=== PATIENT | female | born 1970 | race Caucasian/White ===

== ENCOUNTER → 2016-07-09 | Outpatient (CLI) | payer OTHER ==
[~2016-07-09] MED LIST: AMPH10CA3 PO; EFFSR150 PO; LURA1TAB PO; METH-589 PO; ONDA4TAB10 SL; OXYC-57 PO
--- NOTE | 2016-07-09 12:02 | DIAGNOSTIC IMAGING REPORT ---
LEFT KNEE 2 VIEWS HISTORY: M25.562 Left knee pain, unspecified chronicity COMPARISON: None. FINDINGS: There is no fracture or dislocation. Soft tissues are unremarkable. No radiopaque foreign bodies. No knee effusion. Cartilage spaces are maintained for age. IMPRESSION: Unremarkable left knee. Electronically signed by: Yaw Calhoun M.D. 07/09/2016 12:00 PM Dictated Date/Time: 07/09/2016 11:59 AM
[2016-07-09 13:52] LABS: THYROID STIMULATING HORMONE 1.46 uIu/ml (0.300-4.500)
== END | disposition home or self-care (01) ==
LOC: C.LAB1850 11:25
PROVIDERS: ATTEND Internal Medicine Endocrinology, Diabetes & Metabolism
DX: M25.562 Pain in left knee (principal)

== ENCOUNTER → 2017-03-24 | Outpatient (CLI) | payer OTHER ==
[~2017-03-24] MED LIST changes: -ONDA4TAB10 SL; -OXYC-57 PO
== END | disposition home or self-care (01) ==
LOC: C.PAPS 09:29
PROVIDERS: ATTEND Obstetrics & Gynecology
DX: Z12.4 Encounter for screening for malignant neoplasm of cervix (principal)

== ENCOUNTER → 2017-07-13 | Outpatient (CLI) | payer OTHER ==
[2017-07-13 12:32] LABS: BASO % 0.1 %; BASO ABS # 0.01 K/uL (0-0.2); EOS % 0.6 %; EOS ABS # 0.06 K/uL (0-0.5); HEMATOCRIT 43.8 % (37-47); HEMOGLOBIN 14.3 g/dL (12.0-16.0); IG# 0.03 K/uL (0.00-0.02); LYMPH % 25.7 %; LYMPH ABS # 2.61 K/uL (1.2-3.4); MEAN CELL VOLUME 94.6 fL (80-100); MEAN CORPUSCULAR HEMOGLOBIN 30.9 pg (25-34); MEAN CORPUSCULAR HGB CONC 32.6 g/dl (32-36); MEAN PLATELET VOLUME 9.2 fL (7.4-10.4); MONO % 7.5 %; MONO ABS # 0.76 K/uL (0.11-0.59); NEUT % 65.8 %; NEUT ABS # 6.67 K/uL (1.4-6.5); PLATELET COUNT 294 K/uL (130-400); RED CELL DISTRIBUTION WIDTH CV 13.9 % (11.5-14.5); RED CELL DISTRIBUTION WIDTH SD 47.7 fL (36.4-46.3); WHITE BLOOD COUNT 10.14 K/uL (4.8-10.8)
[2017-07-13 13:07] LABS: ALBUMIN 3.8 gm/dl (3.4-5.0); ALT/SGPT 25 U/L (12-78); AST/SGOT 13 U/L (15-37); BLOOD UREA NITROGEN 8 mg/dl (7-18); CALCIUM 9.1 mg/dl (8.5-10.1); CARBON DIOXIDE 27 mmol/L (21-32); CHOLESTEROL 241 mg/dl (0-200); CREATININE 0.67 mg/dl (0.60-1.20); GLUCOSE 95 mg/dl (70-99); LDL CHOLESTEROL CALCULATED 146 mg/dl; POTASSIUM 4.4 mmol/L (3.5-5.1); SODIUM 139 mmol/L (136-145)
[2017-07-13 13:11] LABS: ALKALINE PHOSPHATASE 60 U/L (45-117)
== END | disposition home or self-care (01) ==
LOC: C.LABBFT 10:47
PROVIDERS: ATTEND Internal Medicine
DX: R53.83 Other fatigue (principal); E78.5 Hyperlipidemia, unspecified; E05.90 Thyrotoxicosis, unspecified without thyrotoxic crisis or storm

== ENCOUNTER → 2017-08-12 | Outpatient (CLI) | payer OTHER ==
[~2017-08-12] MED LIST changes: +OPTIRAY 320 IV PRN
--- NOTE | 2017-08-12 09:37 | DIAGNOSTIC IMAGING REPORT ---
(CHEST FOR PE) ANGIO WITH CT DOSE: 178.20 mGy.cm HISTORY: 47 years-old Female presents with acute dyspnea on exertion and dizziness TECHNIQUE: Multiple CTA images of the chest were obtained after the intravenous administration of 77 ml Optiray 320. Coronal and sagittal MIPS were obtained from the axial data set and were submitted for review. A dose lowering technique was utilized adhering to the principles of ALARA. COMPARISON: Chest radiographs 11/01/2015 FINDINGS: CTA: The heart is normal in size without pericardial effusion. The thoracic aorta is normal in both course and caliber without aneurysm or dissection. Mild atheromatous plaquing involves the origin of the left subclavian artery without high-grade narrowing. Mild atheromatous plaquing involves the descending thoracic aorta. The pulmonary arterial tree is opacified to level of the subsegmental branches and demonstrates no focal filling defects to suggest pulmonary thromboembolic disease. CT CHEST: No dominant thyroid nodule identified. No pathologic adenopathy is identified. There is no pneumothorax, pleural effusion or focal airspace consolidation. Minimal dependent subsegmental bibasilar atelectasis with mild biapical pleural-parenchymal scarring. No suspicious pulmonary nodules or masses are identified. There is mild bilateral bronchial wall thickening of the lung bases with minimal mucosal secretions noted within bronchi of the right lower lobe. Imaged upper abdominal structures are unremarkable. The breast parenchyma appears to be within normal limits. Soft tissues are unremarkable. Bones appear intact. IMPRESSION: 1. No acute aortic pathology or evidence of pulmonary thromboembolic disease. 2. Minimal bilateral bronchial wall thickening with areas of minimal mucosal secretions within the tracheobronchial tree suggest mild bronchitis. No focal airspace consolidation to suggest pneumonia. 3. No pathologic adenopathy. The above report was generated using voice recognition software. It may contain grammatical, syntax or spelling errors. Electronically signed by: Jean Marie Trevino M.D. 08/12/2017 9:36 AM Dictated Date/Time: 08/12/2017 9:29 AM
== END | disposition home or self-care (01) ==
LOC: C.CTS 09:10
PROVIDERS: ATTEND Physician Assistant Medical
DX: R06.09 Other forms of dyspnea (principal)

== ENCOUNTER 2018-08-17 05:43 | Observation (INO) ==
--- NOTE | 2018-08-12 09:32 | Anesthesiology Consultation ---
Date of Service August 12, 2018 Assessment & Plan (1) Encounter for pre-operative examination: Chart Review Chart Review: Acceptable Risk for Surgery and Patient NOT seen in Pre Admission Testing History Surgery Operation Date: 08/17/18 07:30 Proposed Procedures p Robot-Assisted Laparoscopic Fundoplication with - Franky Lr MD, FACS s Intra-Operative Esophagogastroduodenoscopy - Franky Lr MD, FACS Height/Weight Height: 5 ft 1 in Weight: 61.235 kg Allergies Allergy/AdvReac Type Severity Reaction Status Date / Time Penicillins Allergy Unknown THROAT Verified 08/11/18 10:05 SWELLING Tetracyclines Allergy Unknown SWALLOWING Verified 08/11/18 10:05 DIFFICULTY bupropion [From Wellbutrin] AdvReac Severe SEVERE Verified 08/11/18 10:21 REFLUX, SEVERE ABDOMINAL PAIN WITH EROSIONS lurasidone [From Latuda] AdvReac Severe TACHYCARDIA, Verified 08/11/18 10:20 LIGHTHEADED Medications Home Medications Medication Instructions Recorded Confirmed Last Taken venlafaxine 225 mg PO QAM #0 02/19/15 08/11/18 04/05/18 atomoxetine [Strattera] 100 mg PO QAM 04/01/18 08/11/18 04/05/18 lamotrigine [Lamictal] 200 mg PO HS 04/01/18 08/11/18 04/05/18 methimazole 5 mg PO QAM 08/11/18 08/11/18 Unknown trazodone 200 mg PO HS 08/11/18 08/11/18 Unknown Past Medical History Medical History ADHD Anxiety Asthma NO INHALER Depression GERD (gastroesophageal reflux disease) Hyperthyroidism ON METHIMAZOLE; EUTHYROID ON 06/2018 LABS Kidney stones Past Family History Family History Mother FHx: breast cancer Past Surgical History Surgical History History of arthroscopy RIGHT KNEE History of bilateral tubal ligation History of esophagogastroduodenoscopy (EGD) History of tonsillectomy Nausea and vomiting after administration of anesthetic agent Social History Smoking Status: Current every day smoker tobacco type: cigarettes Smoking cigarettes per day: 1/2-3/4 PPD X30 YEARS Do You Dip or Chew Tobacco: No Hx Alcohol Use: No Hx Substance Use: Yes substance use type: marijuana Last Used Substance Other:: 08/04/18 Testing Laboratory Results 08/11/18 WBC 10.13 H/H 13.2/40.9 PLATELETS 294 SODIUM 138 POTASSIUM 4.1 CHLORIDE 109 CO2 26 BUN 12 CREATININE 0.74 GLUCOSE 90 07/13/18 TSH 1.540 FREE T4 0.92
[2018-08-17] MEDS ORDERED: LR 15ML/HR IV SCH (06:00)
[2018-08-17] MEDS ORDERED: MIDAZOLAM HCL 1 MG/ML 2ML VIAL ONE (06:37)
[2018-08-17] MEDS ORDERED: fentaNYL citrate 100 MCG/2 ML VIAL ONE ×2 (06:37→08:26)
[2018-08-17] MEDS ORDERED: ACETAMINOPHEN 1000 MG/100 ML IV IV ONE (06:51)
[2018-08-17] MEDS ORDERED: PROPOFOL IV EMULSION 10 MG/ML 20 ML VIAL IV ONE (06:54)
[2018-08-17] MEDS ORDERED: LIDOCAINE HCL 2% 2 ML VIAL/AMP(20MG/ML) INFIL ONE (06:54)
[2018-08-17] MEDS ORDERED: ROCURONIUM BROMIDE 10 MG/ML 5 ML VIAL ONE ×5 (06:54)
[2018-08-17] MEDS ORDERED: BUPIVACAINE 0.5 % 5 MG/1 ML MPF 30ML VIAL ONE (07:09)
[2018-08-17] MEDS ORDERED: SODIUM CHLORIDE 0.9% PF 50 ML VIAL ONE (07:09)
[2018-08-17] MEDS ORDERED: BUPIVACAINE LIPOSOME 1.3% 266 MG/20 ML VIAL ONE (07:10)
[2018-08-17] MEDS ORDERED: SCOPOLAMINE 1.5 MG TDSY ONE (07:15)
[2018-08-17] MEDS ORDERED: CLINDAMYCIN 600 MG/54 ML D5W IV ONE (07:18)
--- NOTE | 2018-08-17 07:18 | History & Physical Bridge Note ---
Date of Service August 17, 2018 History & Physical Bridge Note I have examined the patient, reviewed the History & Physical and in the interval since the performance of the History & Physical I have noted the following changes of clinical significance:We will perform an upper endoscopy to evaluate the repair as I do in every one of these cases. No changes noted
[2018-08-17] MEDS ORDERED: CLINDAMYCIN PHOS 300 MG/2 ML VIAL ONE (07:21)
[2018-08-17] MEDS ORDERED: PHENYLEPHRINE 100MCG/ML 5ML SYR IV PRN (07:33)
[2018-08-17] MEDS ORDERED: ATROPINE SULFATE 0.1 MG/ML 10ML SYR IV PRN (07:33)
[2018-08-17] MEDS ORDERED: ePHEDrine sulfate 50 MG/ML AMP IV PRN (07:33)
[2018-08-17] MEDS ORDERED: HYDROmorphone INJ 1 MG/ML SYRINGE IV PRN (07:33)
[2018-08-17] MEDS ORDERED: fentaNYL citrate 100 MCG/2 ML VIAL IV PRN (07:33)
[2018-08-17] MEDS ORDERED: ONDANSETRON INJ 2 MG/ML 2 ML VIAL IV PRN (07:33)
[2018-08-17] MEDS ORDERED: LABETALOL HCL IV 5 MG/ML 20ML IV PRN (07:33)
[2018-08-17] MEDS ORDERED: MEPERIDINE HCL 25 MG/ML CARP IV PRN (07:33)
[2018-08-17] MEDS ORDERED: SCOPOLAMINE 1.5 MG TDSY TD ONE (07:35)
[2018-08-17] MEDS ORDERED: CLINDAMYCIN 600 MG in DEXTROSE 5% 50 ML IV SCH (08:30)
[2018-08-17] MEDS ORDERED: HYDROmorphone INJ 2 MG/ML SYR/VIAL ONE (08:44)
[2018-08-17] MEDS ORDERED: GLYCOPYRROLATE 0.2 MG/ML VIAL ONE (09:55)
[2018-08-17] MEDS ORDERED: NEOSTIGMINE METHYLSULFATE 5 MG/5 ML SYR ONE (09:55)
--- NOTE | 2018-08-17 09:55 | Post Operative Brief Note ---
Immediate Post Op Note v1 Date of Surgery August 17, 2018 Pre & Post Diagnosis Operation Date: 08/17/18 07:30 Pre-Op Diagnosis: GERD Post-Op Diagnosis: GERD Procedure Operation Date: 08/17/18 07:30 Actual Procedures p Robot-Assisted Laparoscopic Chantal Fundoplication - Franky Lr MD, FACS Surgeon Franky Lr MD, FACS Tree Driller Eneida [place] Estimated Blood Loss 8 Findings Consistent with Post-Op Diagnosis Drains Rice Catheter
[2018-08-17] MEDS ORDERED: METOCLOPRAMIDE HCL INJ 5 MG/ML 2 ML VIAL IV ONE (10:30)
--- NOTE | 2018-08-17 10:32 | XRay Report ---
XR chest 1V portable HISTORY: 48 years-old Female s/p linwood fundoplication COMPARISON: Chest and rib radiographs 07/13/2018 TECHNIQUE: Portable AP view of the chest FINDINGS: Cardiomediastinal and hilar silhouettes are within normal limits. No pneumothorax or large pleural ef fusion. Subsegmental left basilar opacities are noted with suspected trace left pleural effusion. Sub cutaneous emphysema about the lower chest bilaterally. Degenerative changes of the shoulders and spin e. IMPRESSION: 1. No pneumothorax. 2. Left basilar opacities are suggestive of atelectasis with trace left pleural effusion. 3. Subcutaneous emphysema about the lower chest wall bilaterally likely postsurgical. The above report was generated using voice recognition software. It may contain grammatical, syntax o r spelling errors. Electronically signed by: Jean Marie Trevino M.D. 08/17/2018 10:31 AM
--- NOTE | 2018-08-17 11:13 | Anesthesiology Progress Note ---
Date of Service August 17, 2018 Anesthesia Post Procedure Vital Signs Vital Signs: Temp Pulse Pulse Pulse Resp BP BP 08/17/18 11:00 102 H 12 126/75 08/17/18 10:55 105 H 28 H 118/69 08/17/18 10:50 112 H 19 125/79 08/17/18 10:45 102 H 20 120/74 08/17/18 10:40 108 H 24 126/77 08/17/18 10:35 107 H 15 136/75 08/17/18 10:31 102 H 17 125/73 08/17/18 10:30 108 H 14 08/17/18 10:25 108 H 18 133/81 08/17/18 10:21 36.3 C L 103 H 107 H 28 H 133/97 133/97 08/17/18 06:07 36.8 C 112 H 18 130/72 Pulse Ox 08/17/18 11:00 100 08/17/18 10:55 100 08/17/18 10:50 100 08/17/18 10:45 100 08/17/18 10:40 100 08/17/18 10:35 100 08/17/18 10:31 100 08/17/18 10:30 100 08/17/18 10:25 94 08/17/18 10:21 94 08/17/18 06:07 97 Pain Intensity Abdomen: Pain Intensity: 4 Notes Mental Status: alert / awake / arousable Patient Amnestic to Procedure: Yes Nausea / Vomiting: adequately controlled Pain: adequately controlled Airway Patency, RR, SpO2: stable & adequate BP & HR: stable & adequate Hydration State: stable & adequate Anesthetic Complications: no major complications apparent and Pt Satisfied with anesthetic care Notes: The patient is awake and stable.
[2018-08-17] MEDS: CHECK SCOPOLAMINE PATCH PLACEMENT SCH ×3 (11:53→23:25)
[2018-08-17] MEDS: MoRPHine SULFATE 4 MG/ML 1 ML CARP\\VIAL IV PRN ×3 (12:13→19:45)
[2018-08-17] MEDS ORDERED: METOCLOPRAMIDE HCL INJ 5 MG/ML 2 ML VIAL ONE (12:49)
[2018-08-17] MEDS: ONDANSETRON INJ 2 MG/ML 2 ML VIAL IV SCH ×3 (12:55→20:38)
[2018-08-17] MEDS: D5W AND 1/2NSS 1,000 ML IV SCH ×2 (12:55→22:55)
[2018-08-17 13:30] LABS: Partial Thromboplastin Ratio 0.9; Partial Thromboplastin Time 23.9 Seconds (21.0-31.0); Prothrombin Time 10.2 Seconds (9.0-12.0)
[2018-08-17] MEDS: ACETAMINOPHEN 1,000 MG/100 ML VIAL IV SCH ×2 (14:41→22:46)
[2018-08-17] MEDS: METOCLOPRAMIDE HCL INJ 5 MG/ML 2 ML VIAL IV SCH (20:29)
[2018-08-17] MEDS: DOCUSATE SODIUM 100 MG CAP PO SCH (20:39)
[2018-08-17] MEDS ORDERED: TRAZODONE HCL 100 MG TAB PO SCH (21:00)
[2018-08-17] MEDS ORDERED: lamoTRIgine 100 MG TAB PO SCH (21:00)
--- NOTE | 2018-08-17 21:41 | Operative Report ---
DATE OF OPERATION: 08/17/2018 PREOPERATIVE DIAGNOSIS: Gastroesophageal reflux, unresponsive to medical management. POSTOPERATIVE DIAGNOSIS: Gastroesophageal reflux, unresponsive to medical management. PROCEDURE: Robotic-assisted laparoscopic Chantal fundoplication. SURGEON: Franky Lr MD TERRITORY SERVICE REPRESENTATIVE: AMAN Ivey ANESTHESIA: General anesthesia, endotracheal intubation. INDICATIONS FOR PROCEDURE AND FINDINGS: This patient is a 48-year-old female who has been bothered with intractable gastroesophageal reflux. She does not have much in the way of a hiatal hernia, but has had severe reflux and awakens at times with a mouth full of bile from sleeping. We had a long talk in the office and she is quite eager to have this repaired. On 08/17/2018, the patient underwent an uncomplicated robot-assisted laparoscopic Chantal fundoplication. She really did not have much of a hernial defect although I did place 1 silk suture posteriorly. She had for a floppy Chantal, which was done without difficulty. She tolerated it quite well. She was extubated in the room. I did attempt to do an upper endoscopy; however, she had a small mouth and I had difficulty with the scope in and so I just stopped rather than be aggressive with it. I did explain to the patient and her family beforehand that I do like to do an endoscopy at the table, but it is not a critical part of the case. DESCRIPTION OF PROCEDURE: On 08/17/2018, the patient was brought to Operating Room and laid in supine position. General anesthesia induced. Endotracheal intubation was performed. Appropriate antibiotics were given and appropriate timeout had been called, an incision was made above between the umbilicus and the xiphoid. Then, 5 mm trocar was placed with the scope in place to see when we got into the abdominal cavity. Carbon dioxide was insufflated. We could see there were no adhesions. Two 8 mm ports placed just a bit lateral to the midclavicular line as she is a small woman. Two 5 mm ports were placed laterally and inferiorly. We then placed an pharmaceutical assistant's port in the left paramedian area near the umbilicus. After the patient was placed in a reverse Trendelenburg and the robot had been docked, we placed a liver retractor and held with the left lobe of the liver and we could see the hiatus nicely. There did not appear to be hiatal hernia in this area. I started by taking down the short gastrics and took them down so that the spleen would fell away from the body. I then came up posteriorly and identified the pancreas. We freed up the crura both on the right side and posteriorly and I then the pars flaccida and then dissected out the right yonatan diaphragm. We easily made this space. There really was not much of a hernia, but I did put a single 0 silk to keep the crura together posteriorly. I then dissected out with care taken to avoid injury to the vagus nerves. The posterior fundus was then brought around in the retroesophageal area. I did a shoeshine procedure by pulling on the anterior and posterior fundus behind the esophagus, making sure we had no redundant stomach. I then sutured the anterior wall of the fundus to the esophagus to the posterior wall of the fundus and tied this together. This came together nicely under no tension. I placed 2 more sutures and did a floppy Chantal, which was not under tension whatsoever. We then undocked the robot. We placed the patient back in supine position and I placed a bite block and went to place an endoscope; however, I had difficulties to get her mouth open despite being under anesthesia. There were also some issues with opening her mouth and when she was being intubated. At any rate, I tried this for a minute or so, but I did not want to push this, so I aborted the attempt to do an upper endoscopy. We then closed the 2 larger incisions with a camera port and the pharmaceutical assistant's port with a #1 Maxon. A 4-0 Monocryl was then used in running subcuticular fashion to close the wound edges of all of the wounds. We decompressed CO2. The fundoplication laid very nicely. We had really gotten no bleeding. She tolerated it well, was extubated in the room without difficulty. She was transported back to the Postanesthesia Care Unit in a stable condition. I attest to the content of the Intraoperative Record and any orders documented therein. Any exception s are noted below.
[2018-08-18] MEDS: ONDANSETRON INJ 2 MG/ML 2 ML VIAL IV SCH ×3 (02:00→09:55)
[2018-08-18] MEDS: MoRPHine SULFATE 4 MG/ML 1 ML CARP\\VIAL IV PRN (05:12)
[2018-08-18] MEDS: METOCLOPRAMIDE HCL INJ 5 MG/ML 2 ML VIAL IV SCH (05:12)
[2018-08-18] MEDS: ACETAMINOPHEN 1,000 MG/100 ML VIAL IV SCH (06:05)
--- NOTE | 2018-08-18 08:10 | Anesthesiology Progress Note ---
Date of Service August 18, 2018 Anesthesia Post Procedure Vital Signs Vital Signs: Temp Pulse Pulse Pulse Pulse Resp BP 08/18/18 07:38 36.9 C 100 H 12 08/18/18 03:11 36.8 C 106 H 14 08/17/18 23:38 98 H 08/17/18 23:27 36.7 C 103 H 14 08/17/18 15:10 08/17/18 14:38 36.6 C 98 H 16 08/17/18 13:38 36.5 C 104 H 16 08/17/18 12:44 36.4 C L 107 H 16 08/17/18 12:09 36.7 C 111 H 15 08/17/18 11:40 36.8 C 110 H 16 08/17/18 11:30 107 H 21 115/71 08/17/18 11:25 107 H 21 121/71 08/17/18 11:20 108 H 17 109/72 08/17/18 11:19 37.1 C 08/17/18 11:15 110 H 17 108/75 08/17/18 11:10 109 H 17 113/67 08/17/18 11:05 107 H 17 120/75 08/17/18 11:00 102 H 12 126/75 08/17/18 10:55 105 H 28 H 118/69 08/17/18 10:50 112 H 19 125/79 08/17/18 10:45 102 H 20 120/74 08/17/18 10:40 108 H 24 126/77 08/17/18 10:35 107 H 15 136/75 08/17/18 10:31 102 H 17 125/73 08/17/18 10:30 108 H 14 08/17/18 10:25 108 H 18 133/81 08/17/18 10:21 36.3 C L 103 H 107 H 28 H 133/97 BP BP Pulse Ox 08/18/18 07:38 84/47 L 92 08/18/18 03:11 99/56 L 95 08/17/18 23:38 108/68 08/17/18 23:27 84/42 L 92 08/17/18 15:10 97 08/17/18 14:38 106/65 99 08/17/18 13:38 108/64 96 08/17/18 12:44 98/60 L 100 08/17/18 12:09 111/65 100 08/17/18 11:40 109/66 95 08/17/18 11:30 100 08/17/18 11:25 100 08/17/18 11:20 100 08/17/18 11:19 100 08/17/18 11:15 100 08/17/18 11:10 100 08/17/18 11:05 99 08/17/18 11:00 100 08/17/18 10:55 100 08/17/18 10:50 100 08/17/18 10:45 100 08/17/18 10:40 100 08/17/18 10:35 100 08/17/18 10:31 100 08/17/18 10:30 100 08/17/18 10:25 94 08/17/18 10:21 133/97 94 Pain Intensity Abdomen: Pain Intensity: 8 Notes Mental Status: alert / awake / arousable and participated in evaluation Patient Amnestic to Procedure: Yes Nausea / Vomiting: adequately controlled Pain: adequately controlled Airway Patency, RR, SpO2: stable & adequate BP & HR: stable & adequate Hydration State: stable & adequate Anesthetic Complications: no major complications apparent and Pt Satisfied with anesthetic care
--- NOTE | 2018-08-18 08:36 | Fluoroscopy Report ---
FL barium swallow CLINICAL HISTORY: 48 years-old Female presenting with Chantal . TECHNIQUE: A routine air-contrast (double contrast) barium esophagram was performed. Multiple spot im ages of the esophagus and stomach were acquired both upright and prone. COMPARISON: 08/02/2018. FINDINGS: The patient was able to ingest barium without difficulty. No barium pill was administered. Normal eso phageal mucosal pattern. No evidence of intrinsic or extrinsic mass lesion. No aspiration observed. N ormal esophageal motility with no significant delay in clearance of the esophagus. No evidence of derick k at the gastroesophageal junction. The gastroesophageal junction distended normally. No evidence of a hiatal hernia. Postsurgical changes of Chantal procedure. The stomach is normal appearing with sligh t delay in clearance, possibly postsurgical ileus. Fluoroscopy dosage (mGy): Not available. Fluoroscopy time: 1.4 minutes. Number or time of fluoroscopic spot images: 8. IMPRESSION: 1. Expected postsurgical appearance status post Chantal procedure. No hold up at the gastroesophageal junction. 2. Slight delay in gastric clearance may represent a postsurgical ileus. Electronically signed by: Herbert Barrios M.D. 08/18/2018 8:34 AM
[2018-08-18] MEDS ORDERED: VENLAFAXINE HCL XR 75 MG CAPXR PO SCH (09:00)
[2018-08-18] MEDS ORDERED: ATOMOXETINE HCL 25 MG CAPSULE PO SCH (09:00)
[2018-08-18] MEDS ORDERED: methIMAzole 5 MG TABLET PO SCH (09:00)
[2018-08-18] MEDS ORDERED: ENOXAPARIN INJ 40 MG/0.4 ML SYR SQ SCH (09:00)
--- NOTE | 2018-08-18 09:11 | Discharge Summary ---
DISCHARGE DIAGNOSES: Gastroesophageal reflux with unresponsive medical management. HOSPITAL COURSE: The patient is a very nice 48-year-old female who had been plagued with gastroesophageal reflux for a long period of time. She is not really responding to medications. She has severe reflux, which is interesting that she awakens at night with a mouth full of bile on a regular basis. She also coughs quite a bit with this. She had no other signs or symptoms radiographically or clinically of aspiration. On 08/17/2018, took the patient to the Operating Room and did an uncomplicated robot assisted Chantal fundoplication. She did very well with this. She really did not have much in the way of a hiatal hernia and so I did not do a patch, although I did place 1 suture in the posterior crura to bring the right and left crura together. A barium swallow done the morning after surgery showed good flow through the esophagus with no hold up and no evidence of perforation. Also passed into the duodenum quite nicely. The patient tolerated it quite well. She was tolerating liquids. She was discharged home on postop day 1. We will see her back in the office in about 2 weeks. Discharge instructions were given particularly about her wounds and her diet.
[2018-08-18] MEDS: CHECK SCOPOLAMINE PATCH PLACEMENT SCH (09:54)
[2018-08-18] MEDS: D5W AND 1/2NSS 1,000 ML IV SCH (09:54)
[2018-08-18] MEDS: DOCUSATE SODIUM 100 MG CAP PO SCH (09:55)
== END 2018-08-18 10:45 | disposition home or self-care (01) ==
LOC: 3W 05:43 → ASU 05:43

== ENCOUNTER 2020-02-08 08:13 | Inpatient (IN) ==
[2020-02-08] MEDS ORDERED: VANCOMYCIN CONSULT ACTIVE PRN (09:21)
[2020-02-08] MEDS ORDERED: ONDANSETRON INJ 2 MG/ML 2 ML VIAL IV PRN (09:26)
[2020-02-08] MEDS ORDERED: ACETAMINOPHEN 325 MG TAB PO PRN (09:26)
--- NOTE | 2020-02-08 09:31 | History & Physical Report ---
Date of Service February 08, 2020 Assessment & Plan (1) Facial cellulitis: - Admit to med surg for failure of outpatient antibiotics. - CT of the neck involves edema, consider sialadenitis with a possible stone in place? - Consider ENT consult Mild submetal soft tissue stranding with increased number nonenlarged probable reactive nodules, consistent with cellulitis/adenitis. No focal abscess. - NSS while NPO - Continue rocephin, vanc IV for now - Cont decadron IV x 24 hrs and then can likely dc - NPO for now, advance diet as tolerated once swelling improves, possibly later tonight - Pain control with toradol, tylenol - antiemetics with zofran (2) Carotid artery stenosis: - Hx of such, not on lipid modifying medications (3) Dyslipidemia: - Hx of such, lipids to be followed with fasting labs or as outpt (4) Hyperthyroidism: - Cont methimazole 5 mg daily (5) ADHD: - Continue adderal xr and vraylar - follows with Mrs. Bunn [facility], psychiatry as outpatient (6) Anxiety: (7) Depression: - Cont effexor, trazodone (8) DVT prophylaxis: teds, ambulatory CODE: FULL Dispo: From home, likely to remain in the hospital x 1-2 days History of Present Illness Primary Care Provider: Anurag Nagy MD This is a 49 yo F with PMHx of carotid artery stenosis, HLD, asthma, depression, ADHD, anxiety, GERD, nephrolithiasis, hyperthyroidism who presents from [facility] with facial cellulitis which failed outpatient antibiotics. She initially noticed worsening swelling and pain which began ear lier this week. She went to urgent care clinic on Tuesday 02/06 due to the significant pain in her right side of the mouth and sublingually, as well as increased swelling. They gave her an antibiotic and was able to take 4 doses of this prior to presenting to [place] [facility]. Once there was given vancomycin, rocephin and decadron 4 mg IV where her symptoms improved. WBC elevated at 18.43. She denies any recent dental issues, no broken teeth or trauma to the mouth. She denies having this before. Her pain and swelling have improved at this time compared to this morning. She reports having sweats and chills, but no documented fever. She was taking tylenol and ibuprofen at home for the pain, and reports vomiting x 1 last night but thinks this was due to an empty stomach. Pt has been unable to tolerate oral intake for 3 days but has been able to take sips of liquids and could swallow her medications as prescribed. She denies any other acute complaints. Allergies Allergy/AdvReac Type Severity Reaction Status Date / Time lurasidone [From Latuda] Allergy Severe TACHYCARDIA, Verified 12/14/19 13:33 LIGHTHEADED Penicillins Allergy Severe THROAT Verified 12/14/19 13:33 SWELLING risperidone Allergy Severe VISION Verified 12/14/19 13:33 LOSS, DIFFICULTY WALKING bupropion [From Wellbutrin] AdvReac Severe SEVERE Verified 12/14/19 13:33 REFLUX, SEVERE ABDOMINAL PAIN WITH EROSIONS aripiprazole [From Abilify] AdvReac Intermediate UPSET Verified 02/08/20 09:43 STOMACH Tetracyclines AdvReac Intermediate SICK TO Verified 02/08/20 09:43 STOMACH Home Medications Home Medications Medication Instructions Recorded Confirmed Type venlafaxine 225 mg PO QAM #0 02/19/15 02/08/20 History Vraylar 3 mg PO HS 12/06/19 02/08/20 History Strattera 100 mg PO QAM 02/08/20 02/08/20 History dextroamphetamine-amphetamine 15 mg PO QAM 02/08/20 02/08/20 History [Adderall XR] trazodone 100 mg PO HS 02/08/20 02/08/20 History hydrocodone-acetaminophen 1 tab PO Q4H PRN #14 tab 02/10/20 Rx methimazole 5 mg tablet 5 mg PO .QOD #15 tab 02/13/20 Rx Past Med/Surg History Medical History ADHD Anxiety Asthma "MILD CASE" rarely uses INH Depression GERD (gastroesophageal reflux disease) Graves disease Hyperlipidemia Hyperthyroidism Kidney stones Post traumatic stress disorder Surgical History History of arthroscopy RIGHT KNEE History of bilateral tubal ligation History of esophagogastroduodenoscopy (EGD) 12/26/2018 [facility] History of tonsillectomy History of tooth extraction Status post Chantal fundoplication Aug 17, 2018 Family History Mother Breast cancer Depression Brother Bipolar disorder Depression Father Hypertension Myocardial infarction Denies family history of Ovarian cancer Prostate cancer Colorectal cancer Social History Smoking Status: Current every day smoker Cigarettes Per Day: 1/2 pack a day.; Second Hand Exposure: Yes; Hx Alcohol Use: Yes Hx Substance Use: No Preferred Language: Liberian Communication Ability: Effective 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 Beliefs That Will Affect Care: None Current Living Situation: Spouse Feels Safe at Home: Yes Review of Systems Review of Systems: Constitutional: +fever, sweats no chills Eyes: No diplopia, no worsening or blurred vision ENT: normal hearing, + trouble swallowing + swelling as per HPI Respiratory: No cough, sputum, dyspnea at rest or on exertion Cardiovascular: No chest pain, tightness or palpitations Abdomen: No pain, + nausea, +vomiting, no diarrhea or constipation Musculoskeletal: No joint pain, calf pain, swelling Neurologic: No weakness, numbness/tingling, or balance problems Psychiatric: + anxiety and depression on medication Skin: No rash or itch Physical Exam Physical Exam: General: awake, alert, no apparent distress Head: Normocephalic, atraumatic ENT: PERRL, EOMI, no pharyngeal exudate, mucous membranes moist, + sublingual edema, + subtonsilar edema and left submandibular lymphadenopathy, tender to palpation. + Can swallow but is painful. Chest: Clear to auscultation, on room air, no adventitious breath sounds Cardiac: Regular rate and rhythm, no murmur, no JVD, normal peripheral pulses, good capillary refill Abdominal: NABS x 4 quadrants, soft, nontender to palpation, no rebound, guarding or tenderness Extremities: Normal inspection, no peripheral edema or erythema, calfs nontender to palpation Psych: Normal mood and affect Neuro: AAO x 3, strength intact bilaterally and rated 5/5, no motor deficits, speech is clear, no peripheral sensory deficits Results & Data Results & Data ([facility]) Diagnostic Findings CT of the neck with IV contrast Impression: Mild subnetal soft tissue stranding with increased number nonenlarged probable reactie nodules, consistent with cellulitis/ adenitis. No focal abscess. Code Status & VTE Plan Code Status Full code - discussed with the pt at bedside Supervising Physician Co-Signing Physician Notes I reviewed above history and physical examination. During my face to face encounter with the patient , I obtained a physical exam and history of present illness. I obtained a plan for her facial cellulitis problem. It appears this may be secondary to her tooth abscess. Will consult maxillofacial. will continue on antibiotics as stated above. I agree with above plan, and discussed the case with the APC Maureen Rust. I answered all of the patient's questions. PG Care Time/CCT Total # of Minutes Spent Total Time Spent with Patient: Total time spent is greater than 50% in coordination of care (as documented) at patient's floor/unit and/or counseling patient: Coding Level of Care Code 12545 Initial Inpt Care Lvl 3 Diagnoses Facial cellulitis L03.211 Carotid artery stenosis I65.29 Dyslipidemia E78.5 Hyperthyroidism E05.90 ADHD F90.9 Anxiety F41.9 Depression F32.9 DVT prophylaxis Z29.9
[2020-02-08] MEDS ORDERED: PATIENT'S HEIGHT AND/OR WEIGHT NEEDED SCH (10:00)
[2020-02-08] MEDS: SODIUM CHLORIDE 0.9% 1000ML 1,000 ML IV SCH (11:30)
[2020-02-08 12:21] LABS: BUN Creatinine Ratio 8.1 (10-20); Calcium 7.5 mg/dl (8.5-10.1); Creatinine Clr Calc Pharmacy 91.8 ml/min; Est GFR (African American) 124.6; Est GFR (Non-African American) 107.5; Potassium 3.9 mmol/L (3.5-5.1)
[2020-02-08] MEDS: cefTRIAXone SODIUM 1,000 MG in DEXTROSE 5% 50 ML IV SCH (12:42)
[2020-02-08] MEDS ORDERED: VANCOMYCIN HCL 1,500 MG in SODIUM CHLORIDE 0.9% 500 ML IV ONE (13:00)
--- NOTE | 2020-02-08 13:21 | Pharmacy Report ---
Pharmacy Abx Dose Short Note - Date of Service February 08, 2020 - Assessment & Plan Assessment 49 year old F receiving vancomycin and Rocephin for treatment of facial cellulitis. She received 4 doses of oral clindamycin as an outpatient. Day # 1 of antimicrobial therapy. Plan Vancomycin * Patient received 1 gm of vancomycin at [facility]. * Patient meets criteria for vancomycin AUC dosing nomogram * AUC/JAKE is the preferred PK/PD target for vancomycin * Target AUC/JAKE = 400-600 * AUC guided dosing is effective and associated with decreased risk of nephrotoxicity Pharmacy will continue to follow and will adjust dose/frequency as necessary. Thank you.
[2020-02-08] MEDS: DEXAMETHASONE SOD PHOSPHATE 4 MG in SYRINGE 0 ML IV SCH ×2 (13:29→21:21)
[2020-02-08] MEDS: KETOROLAC 30 MG/ML VIAL IV PRN (15:17)
[2020-02-08] MEDS: VANCOMYCIN HCL 1,250 MG in SODIUM CHLORIDE 0.9% 250 ML IV SCH (16:01)
[2020-02-08] MEDS ORDERED: MoRPHine SULFATE 4 MG/ML 1 ML CARP\\VIAL IV PRN (16:21)
[2020-02-08] MEDS: MoRPHine SULFATE 2 MG/ML CARP IV PRN (16:56)
[2020-02-08] MEDS ORDERED: COUGH DROP (SUGAR FREE) LOZ 24 LOZ/1 BOX BUCCAL ONE (16:58)
--- NOTE | 2020-02-08 20:00 | Surgery Consultation ---
Date of Consultation February 08, 2020 Oral Maxillofacial Surgery Exam Present Complaint: I have pain/swelling/drainage right lower jaw and floor of my mouth Symptoms have been ongoing for a while they would come and go. A detailed oral exam was completed. Finding-- tender gingival tissue with deep pocket formation lower right side teeth # 27,28,[address] scan nothing specific to suggest submandibular gland infection. Not able to determine dental etiology due to contrast. Soft tissue of the floor of the mouth and lateral to teeth # 27-29 swollen and painful tongue, hard/soft palate, posterior pharyngeal area all with in normal limits, no pathology or abnormal findings noted. The salivary flow from the glands is very clear. Oral Care---Overall oral care is fair Occlusion---Class I missing teeth TMJ exam: No pop, clicking, pain, good ROM, No history of TMJ injury or dysfunction Periodontal exam---fair swollen gingival tissue lower right side facial and lingual, very tender tissue Neck is supple, FROM, Able to extend and flex neck w/o difficulty, no masses, no abnormalities, no airway issues, no evidence of sleep apnea. Only + finding is non spicific swelling (edema) submandibular and mental area Of interest Marissa told me pain and swelling started lower right jaw--she points to teeth 27-28 then swelling got worse resulting in admission to hospital this morning. Plan: CT scan w/o contrast to R/O dental issues I reviewed the treatment plan and consent with the patient. Understanding was expressed. Time was given for questions regarding the surgery, risks and post op care. I will finalize the treatment plan once the CT is reviewed. If extraction of teeth is required for tretament I will plan this soon after CT scan reviewed. Review of informed consent with patient Reason for surgery to remove fractured decayed teeth: Risks discussed: Pain,swelling,infection, dry socket, delayed healing, nerve injury to face,lips,tongue,chin area which could be permanent (rare). TMJ, jaw stiffness, change in bite (rare), ear pain (referred). Sinus problems like fistula or infection. Need to leave a small root fragment in place to avoid injury to nerve or sinus. Home care reviewed--tooth brushing, rinsing, follow up care with Dr King. diet=[id number]-rign-blev dental. Discussed activity level, driving/work while on Rx pain Meds. Plan: To be determined once CT evaluated (CT face w/o contrast) 20 Assessment & Plan (1) Facial cellulitis: - Admit to med surg for failure of outpatient antibiotics. - CT of the neck involves edema, consider sialadenitis with a possible stone in place? - Consider ENT consult Mild submetal soft tissue stranding with increased number nonenlarged probable reactive nodules, consistent with cellulitis/adenitis. No focal abscess. - NSS while NPO - Continue rocephin, vanc IV for now - Cont decadron IV x 24 hrs and then can likely dc - NPO for now, advance diet as tolerated once swelling improves, possibly later tonight - Pain control with toradol, tylenol - antiemetics with zofran History of Present Illness Attending Physician: Jomar Mitchell Allergies Allergy/AdvReac Type Severity Reaction Status Date / Time lurasidone [From Latuda] Allergy Severe TACHYCARDIA, Verified 12/14/19 13:33 LIGHTHEADED Penicillins Allergy Severe THROAT Verified 12/14/19 13:33 SWELLING risperidone Allergy Severe VISION Verified 12/14/19 13:33 LOSS, DIFFICULTY WALKING bupropion [From Wellbutrin] AdvReac Severe SEVERE Verified 12/14/19 13:33 REFLUX, SEVERE ABDOMINAL PAIN WITH EROSIONS aripiprazole [From Abilify] AdvReac Intermediate UPSET Verified 02/08/20 09:43 STOMACH Tetracyclines AdvReac Intermediate SICK TO Verified 02/08/20 09:43 STOMACH Home Medications Home Medications Medication Instructions Recorded Confirmed Type venlafaxine 225 mg PO QAM #0 02/19/15 02/08/20 History Vraylar 3 mg PO HS 12/06/19 02/08/20 History Strattera 100 mg PO QAM 02/08/20 02/08/20 History dextroamphetamine-amphetamine 15 mg PO QAM 02/08/20 02/08/20 History [Adderall XR] methimazole 5 mg tablet 5 mg PO DAILY #30 tab 02/08/20 02/08/20 Rx trazodone 100 mg PO HS 02/08/20 02/08/20 History Patient History Medical History (Updated 02/08/20 @ 12:06 by Kailee Rust PA-C) ADHD Anxiety Asthma "MILD CASE" rarely uses INH Depression GERD (gastroesophageal reflux disease) Graves disease Hyperlipidemia Hyperthyroidism Kidney stones Post traumatic stress disorder Surgical History History of arthroscopy RIGHT KNEE History of bilateral tubal ligation History of esophagogastroduodenoscopy (EGD) 12/26/2018 [facility] History of tonsillectomy History of tooth extraction Status post Chantal fundoplication Aug 17, 2018 Family History Mother Breast cancer Depression Brother Bipolar disorder Depression Father Hypertension Myocardial infarction Denies family history of Ovarian cancer Prostate cancer Colorectal cancer Social History Smoking Status: Current every day smoker Cigarettes Per Day: 1/2 pack a day.; Second Hand Exposure: Yes; Do You Dip or Chew Tobacco: No; Hx Alcohol Use: Yes Hx Substance Use: No Preferred Language: Georgian Communication Ability: Effective 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 Beliefs That Will Affect Care: None Current Living Situation: Spouse Other Information That Helps Us Care for You: No Feels Safe at Home: Yes Safety Concerns: Feels Safe At This Time Results & Data ([facility]) Vital Signs (Past 12 Hours) Vital Signs Temp Pulse Resp BP BP Pulse Ox 02/08/20 15:48 37 C 61 17 82/48 L 96 02/08/20 11:54 105/65 02/08/20 11:17 36.5 C 88 16 88/61 L 98 PG Care Time/CCT Total # of Minutes Spent Total Time Spent with Patient: Total time spent is greater than 50% in coordination of care (as documented) at patient's floor/unit and/or counseling patient: Coding Level of Care Code 87095 Inpt Consult Level 3 Diagnoses Facial cellulitis L03.211
--- NOTE | 2020-02-08 20:28 | CT Scan Report ---
MAXILLOFACIAL CT CT DOSE: 626.57 mGy.cm HISTORY: swelling Rt Floor of mouth and subperiosteal space TECHNIQUE: Multiaxial CT images of the maxillofacial region were performed and reformatted in the cor onal plane without the use of contrast. A dose lowering technique was utilized adhering to the [facility]. COMPARISON: Outside hospital neck CT 02/08/2020. FINDINGS: Multiple scattered dental caries are noted. ADA 7 has been previously extracted. A 5 mm per iapical lucency at ADA 28. No associated cortical breakthrough. However, there is mild focal soft tis pedro swelling at this location adjacent to the buccal surface of the right hemimandible. This is best seen on image 123. No masses or areas of cortical destruction at the apex of the mandible which is de ep to the skin marker. There is minimal soft tissue stranding adjacent to the apex of the mandible. T here is also a few submental lymph nodes which measure up to 4 mm in short axis diameter. There is as ymmetric thickening and surrounding fat stranding involving the right mouth floor muscles. This inclu yomaira both the right mylohyoid and anterior digastric muscles. This is best seen on image 64 of 494. No definite fluid collections on this noncontrast study to suggest an abscess. There is mild edema and fat stranding surrounding the thickened muscles. There is also mild fat stranding/edema within the ri ght sublingual and submandibular spaces with mild right submandibular lymphadenopathy. No sialoliths identified. The parapharyngeal fat spaces are well-maintained. The visualized major mucosal airways s ervices are intact. Prevertebral soft tissues and the epiglottis are normal in thickness. Dental lisbet fact obscures the oral cavity. The orbits and visualized brain parenchyma or unremarkable. Mild mucos al thickening within the left maxillary sinus. The mastoid air cells are clear. No suspicious lytic o r blastic osseous lesions within the visualized osseous structures. IMPRESSION: 1. Asymmetric thickening of the right mouth floor muscles with associated edema/fat stranding within the right sublingual and submandibular spaces. There is also mild focal soft tissue edema abutting th e buccal surface of the body of the right hemimandible. This is nonspecific but could be reactive to the 5 mm periapical lucency at ADA 28. A developing Severo's angina cannot be excluded on the basis o f imaging alone. Therefore, clinical correlation recommended. 2. Mild right submandibular lymphadenopathy is likely reactive. 3. No definite loculated fluid collections on this noncontrast study to suggest an abscess. 4. These findings were called/faxed to the referring physician following dictation. ACT 112: Negative or not required by law. Electronically signed by: Yaw Calhoun M.D. 02/08/2020 8:26 PM
[2020-02-08] MEDS: TRAZODONE HCL 100 MG TAB PO SCH (21:21)
--- NOTE | 2020-02-08 21:51 | Progress Note ---
Date of Service February 08, 2020 Assessment & Plan (1) Facial cellulitis: - Admit to med surg for failure of outpatient antibiotics. - CT of the neck involves edema, consider sialadenitis with a possible stone in place? - Consider ENT consult Mild submetal soft tissue stranding with increased number nonenlarged probable reactive nodules, consistent with cellulitis/adenitis. No focal abscess. - NSS while NPO - Continue rocephin, vanc IV for now - Cont decadron IV x 24 hrs and then can likely dc - NPO for now, advance diet as tolerated once swelling improves, possibly later tonight - Pain control with toradol, tylenol - antiemetics with zofran Admission and Anticipated Discharge Date Admission Date: February 08, 2020 Subjective I reviewed the CT scan without contrast and as I suspected there is a 5 mm radiolucency at the apex of tooth # 28. This is the area that Marissa indicated was the first area of pain and swelling. The indicated treatment is extraction of the tooth as I suspect there is a periodontal issues associated with the tooth as well as a deep cervical area of decay. I called Marissa at her bedside and reviewed the need for extraction of # 28 tomorrow in the OR with anesthesia. I will also drain the submandibular, sub periosteal and floor of mouth swelling that brought her to our hospital. Once the tooth is extracted I see no reason why she can not be discharged with oral antibiotics and follow up by me. I will set this up tomorrow with OR and keep her NPO tonight. Consent to be signed for tooth 28 with I&D. Physical Exam Physical Exam: General: awake, alert, no apparent distress Head: Normocephalic, atraumatic ENT: PERRL, EOMI, no pharyngeal exudate, mucous membranes moist, + sublingual edema, + subtonsilar edema and left submandibular lymphadenopathy, tender to palpation. + Can swallow but is painful. Chest: Clear to auscultation, on room air, no adventitious breath sounds Cardiac: Regular rate and rhythm, no murmur, no JVD, normal peripheral pulses, good capillary refill Abdominal: NABS x 4 quadrants, soft, nontender to palpation, no rebound, guard ing or tenderness Extremities: Normal inspection, no peripheral edema or erythema, calfs nontender to palpation Psych: Normal mood and affect Neuro: AAO x 3, strength intact bilaterally and rated 5/5, no motor deficits, speech is clear, no peripheral sensory deficits Results & Data ([facility]) Vital Signs (Past 12 Hours) Vital Signs Temp Pulse Resp BP BP Pulse Ox 02/08/20 15:48 37 C 61 17 82/48 L 96 02/08/20 11:54 105/65 02/08/20 11:17 36.5 C 88 16 88/61 L 98 PG Care Time/CCT Total # of Minutes Spent Total Time Spent with Patient: Total time spent is greater than 50% in placement coordinator rdination of care (as documented) at patient's floor/unit and/or counseling patient: Coding Level of Care Code None Diagnoses Facial cellulitis L03.211
[2020-02-09] MEDS: SODIUM CHLORIDE 0.9% 1000ML 1,000 ML IV SCH ×3 (00:59→17:56)
[2020-02-09] MEDS: VANCOMYCIN HCL 1,250 MG in SODIUM CHLORIDE 0.9% 250 ML IV SCH ×2 (03:54→18:09)
[2020-02-09 04:23] LABS: Appearance Urine Clear (Clear); Bacteria Urine Automated Negative (Negative); Bilirubin Urine Negative (Negative); Blood Urine 2+ (Negative); Color Urine Yellow; Epithelial Cell Urine Auto >30 /lpf (0-5); Glucose Urine UA 3+ (Negative); Ketones Urine 2+ (Negative); Leukocyte Esterase Urine Negative (Negative); Nitrite Urine Negative (Negative); Protein Urine Negative (Negative); Specific Gravity Urine 1.023 (1.000-1.030); Urobilinogen Urine Negative (Negative)
[2020-02-09] MEDS: DEXAMETHASONE SOD PHOSPHATE 4 MG in SYRINGE 0 ML IV SCH (04:54)
[2020-02-09 06:36] LABS: Hematocrit (blood only) 36.9 % (37-47); Hemoglobin 12.4 g/dL (12.0-16.0); Mean Corpuscular Hemoglobin 30.6 pg (25-34); Mean Corpuscular Hgb Conc 33.6 g/dL (32-36); Mean Corpuscular Volume 91.1 fL (80-100); Mean Platelet Volume 9.1 fL (7.4-10.4); Platelet Count 270 K/uL (130-400); RDW Coefficient of Variation 14.3 % (11.5-14.5); RDW Standard Deviation 47.4 fL (36.4-46.3); Red Blood Count 4.05 M/uL (4.2-5.4); White Blood Count 19.34 K/uL (4.8-10.8)
[2020-02-09 07:05] LABS: Albumin Level 2.3 gm/dl (3.4-5.0); BUN Creatinine Ratio 14.7 (10-20); Calcium 7.6 mg/dl (8.5-10.1); Creatinine Clr Calc Pharmacy 98.6 ml/min; Est GFR (African American) 127.5
[2020-02-09 07:08] LABS: Albumin Globulin Ratio 0.7 (0.9-2); Bilirubin,Total 0.3 mg/dl (0.2-1); Globulin 3.4 gm/dl (2.5-4.0); Total Protein 5.7 gm/dl (6.4-8.2)
[2020-02-09] MEDS: KETOROLAC 30 MG/ML VIAL IV PRN (07:58)
[2020-02-09] MEDS: VENLAFAXINE HCL XR 75 MG CAPXR PO SCH (09:15)
[2020-02-09] MEDS: methIMAzole 5 MG TABLET PO SCH (09:15)
[2020-02-09] MEDS: MoRPHine SULFATE 2 MG/ML CARP IV PRN ×3 (09:22→21:05)
[2020-02-09] MEDS: ATOMOXETINE HCL 25 MG CAPSULE PO SCH (10:07)
[2020-02-09] MEDS: DEXTROAMPHETAMINE/AMPHETAMINE ER 5 MG CAP PO SCH (10:46)
[2020-02-09] MEDS: cefTRIAXone SODIUM 1,000 MG in DEXTROSE 5% 50 ML IV SCH (12:07)
--- NOTE | 2020-02-09 14:48 | Anesthesiology Consultation ---
Date of Service February 09, 2020 Assessment & Plan (1) Encounter for pre-operative examination: Chart Review Chart Review: Acceptable Risk for Surgery and Patient NOT seen in Pre Admission Testing Consults Requested none History Surgery Operation Date: 02/09/20 12:55 Proposed Procedures p Incision and Drainage Facial Abscess - Derik R Christine, DMD s Extraction Lower Tooth - Derik King DMD Height/Weight Height: 5 ft 2 in Weight: 58.9 kg Allergies Allergy/AdvReac Type Severity Reaction Status Date / Time lurasidone [From Latuda] Allergy Severe TACHYCARDIA, Verified 12/14/19 13:33 LIGHTHEADED Penicillins Allergy Severe THROAT Verified 12/14/19 13:33 SWELLING risperidone Allergy Severe VISION Verified 12/14/19 13:33 LOSS, DIFFICULTY WALKING bupropion [From Wellbutrin] AdvReac Severe SEVERE Verified 12/14/19 13:33 REFLUX, SEVERE ABDOMINAL PAIN WITH EROSIONS aripiprazole [From Abilify] AdvReac Intermediate UPSET Verified 02/08/20 09:43 STOMACH Tetracyclines AdvReac Intermediate SICK TO Verified 02/08/20 09:43 STOMACH Medications Home Medications Medication Instructions Recorded Confirmed Last Taken venlafaxine 225 mg PO QAM #0 02/19/15 02/08/20 02/08/20 Vraylar 3 mg PO HS 12/06/19 02/08/20 02/07/20 Strattera 100 mg PO QAM 02/08/20 02/08/20 Unknown dextroamphetamine-amphetamine 15 mg PO QAM 02/08/20 02/08/20 02/07/20 [Adderall XR] methimazole 5 mg tablet 5 mg PO DAILY #30 tab 02/08/20 02/08/20 Unknown trazodone 100 mg PO HS 02/08/20 02/08/20 02/07/20 Active Medications Generic Name Dose Route Start Last Admin Trade Name Freq PRN Reason Stop Dose Admin Amphetamine/Dextroamphetamine 15 mg 02/09/20 09:00 02/09/20 10:46 Dextroamphetamine/Amphetamine Er 5 Mg Cap PO 02/23/20 08:59 15 mg QAM GENE Administration Atomoxetine HCl 100 mg 02/09/20 09:00 02/09/20 10:07 Atomoxetine Hcl 25 Mg Capsule PO 03/10/20 08:59 Not Given QAM GENE Ceftriaxone Sodium 1,000 mg/ 50 mls @ 100 mls/hr 02/08/20 12:00 02/09/20 12:37 Dextrose IV 02/15/20 09:29 Infused Q24H GENE Infusion Protocol Vancomycin HCl 1,250 mg/ 275 mls @ 125 mls/hr 02/08/20 16:00 02/09/20 06:17 Sodium Chloride IV 02/15/20 15:59 Infused Q12H GENE Infusion Protocol Sodium Chloride 1,000 mls @ 80 mls/hr 02/08/20 09:30 02/09/20 00:59 Nss 1000ml IV 03/09/20 09:29 80 mls/hr .[id number] GENE Administration Ketorolac Tromethamine 30 mg 02/08/20 12:11 02/09/20 07:58 Ketorolac 30 Mg/Ml Vial IV 02/13/20 12:10 30 mg Q6H PRN Administration Pain Methimazole 5 mg 02/09/20 09:00 02/09/20 09:15 Methimazole 5 Mg Tablet PO 03/10/20 08:59 5 mg DAILY GENE Administration Miscellaneous 1 ea 02/09/20 00:00 02/09/20 09:06 Cariprazine [Vraylar]: Order Awaiting Action N/A 03/10/20 00:00 Not Given QS GENE Morphine Sulfate 2 mg 02/08/20 16:21 02/09/20 09:22 Morphine Sulfate 2 Mg/Ml Carp IV 02/22/20 16:20 2 mg Q2H PRN Administration Pain Ondansetron HCl 4 mg 02/08/20 09:26 02/08/20 14:26 Ondansetron Inj 2 Mg/Ml 2 Ml Vial IV 03/09/20 09:25 4 mg Q4H PRN Administration Nausea And Vomiting Trazodone HCl 100 mg 02/08/20 21:00 02/08/20 21:21 Trazodone Hcl 100 Mg Tab PO 03/09/20 20:59 100 mg HS GENE Administration Venlafaxine HCl 225 mg 02/09/20 09:00 02/09/20 09:15 Venlafaxine Hcl Xr 75 Mg Capxr PO 03/10/20 08:59 225 mg QAM GENE Administration NPO Date Last Intake of Fluids: 02/08/20 Time Last Intake of Fluids: 17:00 Date Last Intake of Solids: 02/08/20 Time Last Intake of Solids: 17:00 Past Medical History Medical History ADHD Anxiety Asthma "MILD CASE" rarely uses INH Depression GERD (gastroesophageal reflux disease) Graves disease Hyperlipidemia Hyperthyroidism Kidney stones Post traumatic stress disorder Exercise / Class Metabolic Activity II 4-5 Yardwork/Stairs/Walk up hill Past Family History Family History Mother Breast cancer Depression Brother Bipolar disorder Depression Father Hypertension Myocardial infarction Denies family history of Ovarian cancer Prostate cancer Colorectal cancer Past Surgical History Surgical History History of arthroscopy RIGHT KNEE History of bilateral tubal ligation History of esophagogastroduodenoscopy (EGD) 12/26/2018 [facility] History of tonsillectomy History of tooth extraction Status post Chantal fundoplication Aug 17, 2018 Past Anesthesia History No Hx of Anesthesia Complications and No Family Hx of Anesthesia Complications History of PONV No Hx of PONV and No Hx of Motion Sickness Social History Smoking Status: Current every day smoker tobacco type: cigarettes Smoking cigarettes per day: 1/2 pack a day. Do You Dip or Chew Tobacco: No Hx Alcohol Use: Yes alcohol intake frequency: holidays/special occasions only Hx Substance Use: No substance use type: does not use Last Used Substance Other:: 08/04/18 Physical Exam Vital Signs Last Vital Signs Temp 36.8 C 02/09/20 14:36 Pulse 79 02/09/20 14:36 Resp 16 02/09/20 14:36 BP 127/74 02/09/20 14:36 Pulse Ox 95 02/09/20 14:36 Testing Laboratory Results 02/09/20 05:48 02/09/20 05:48 Urine Color Yellow 02/09/20 03:50 Urine Appearance Clear (Clear) 02/09/20 03:50 Urine pH 6.0 (4.5-7.5) 02/09/20 03:50 Ur Specific Hunt 1.023 (1.000-1.030) 02/09/20 03:50 Urine Protein Negative (Negative) 02/09/20 03:50 Urine Glucose (UA) 3+ (Negative) H 02/09/20 03:50 Urine Ketones 2+ (Negative) H 02/09/20 03:50 Urine Nitrite Negative (Negative) 02/09/20 03:50 Ur Leukocyte Esterase Negative (Negative) 02/09/20 03:50 Urine WBC (Auto) 1-5 /hpf (0-5) 02/09/20 03:50 Urine RBC (Auto) 10-30 /hpf (0-4) H 02/09/20 03:50 U Hyaline Cast (Auto) 1-5 /lpf (0-5) 02/09/20 03:50 U Epithel Cells (Auto) >30 /lpf (0-5) H 02/09/20 03:50 Urine Bacteria (Auto) Negative (Negative) 02/09/20 03:50 02/08/20 11:37 Aerobic Blood Culture - Preliminary Blood No growth in Aerobic bottle after 24 hours. Anaerobic Blood Culture - Preliminary No growth in Anaerobic bottle after 24 hours. 02/08/20 11:38 Aerobic Blood Culture - Preliminary Blood No growth in Aerobic bottle after 24 hours. Other Testing 02/08/2020: CT DOSE: 626.57 mGy.cm HISTORY: swelling Rt Floor of mouth and subperiosteal space TECHNIQUE: Multiaxial CT images of the maxillofacial region were performed and reformatted in the coronal plane without the use of contrast. A dose lowering technique was utilized adhering to the principles of ALARA. COMPARISON: Outside hospital neck CT 02/08/2020. FINDINGS: Multiple scattered dental caries are noted. ADA 7 has been previously extracted. A 5 mm periapical lucency at ADA 28. No associated cortical breakthrough. However, there is mild focal soft tissue swelling at this location adjacent to the buccal surface of the right hemimandible. This is best seen on image 123. No masses or areas of cortical destruction at the apex of the rajesh ible which is deep to the skin marker. There is minimal soft tissue stranding adjacent to the apex of the mandible. There is also a few submental lymph nodes which measure up to 4 mm in short axis diameter. There is asymmetric thickening and surrounding fat stranding involving the right mouth floor muscles. This includes both the right mylohyoid and anterior digastric muscles. This is best seen on image 64 of 494. No definite fluid collections on this noncontrast study to suggest an abscess. There is mild edema and fat stranding surrounding the thickened muscles. There is also mild fat stranding/edema within the right sublingual and submandibular spaces with mild right submandibular lymphade nopathy. No sialoliths identified. The parapharyngeal fat spaces are well- maintained. The visualized major mucosal airways services are intact. Prevertebral soft tissues and the epiglottis are normal in thickness. Dental artifact obscures the oral cavity. The orbits and visualized brain parenchyma or unremarkable. Mild mucosal thickening within the left maxillary sinus. The mastoid air cells are clear. No suspicious lytic or blastic osseous lesions within the visualized osseous structures. IMPRESSION: 1. Asymmetric thickening of the right mouth floor muscles with associated edema/fat stranding within the right sublingual and submandibular spaces. There is also mild focal soft tissue edema abutting the buccal surface of the body of the right hemimandible. This is nonspecific but could be reactive to the 5 mm periapical lucency at ADA 28. A developing Severo's angina cannot be excluded on the basis of imaging alone. Therefore, clinical correlation recommended. 2. Mild right submandibular lymphadenopathy is likely reactive. 3. No definite loculated fluid collections on this noncontrast study to suggest an abscess. 4. These findings were called/faxed to the referring physician following dictation.
[2020-02-09] MEDS ORDERED: fentaNYL citrate 100 MCG/2 ML VIAL IV PRN (14:54)
[2020-02-09] MEDS ORDERED: ONDANSETRON INJ 2 MG/ML 2 ML VIAL IV PRN (14:54)
[2020-02-09] MEDS ORDERED: ePHEDrine sulfate 50 MG/ML AMP IV PRN (14:54)
[2020-02-09] MEDS ORDERED: HYDROmorphone INJ 1 MG/ML SYRINGE IV PRN (14:54)
[2020-02-09] MEDS ORDERED: ATROPINE SULFATE 0.1 MG/ML 10ML SYR IV PRN (14:54)
[2020-02-09] MEDS ORDERED: BUPIVACAINE/EPINEPHRINE 0.5% 1:200,000 1.8 ML CARP ONE (15:08)
[2020-02-09] MEDS ORDERED: CHLORHEXIDINE GLUCONATE 0.12% 480 ML ONE (15:08)
[2020-02-09] MEDS ORDERED: PROPOFOL IV EMULSION 10 MG/ML 20 ML VIAL IV ONE (15:14)
[2020-02-09] MEDS ORDERED: ONDANSETRON INJ 2 MG/ML 2 ML VIAL ONE (15:14)
[2020-02-09] MEDS ORDERED: GLYCOPYRROLATE 0.2 MG/ML VIAL ONE (15:14)
[2020-02-09] MEDS ORDERED: LIDOCAINE HCL 2% 2 ML VIAL/AMP(20MG/ML) INFIL ONE (15:14)
[2020-02-09] MEDS ORDERED: MIDAZOLAM HCL 1 MG/ML 2ML VIAL ONE (15:14)
[2020-02-09] MEDS ORDERED: DEXAMETHASONE SOD INJ 4 MG/ML VIAL ONE (15:14)
[2020-02-09] MEDS ORDERED: NEOSTIGMINE METHYLSULFATE 5 MG/5 ML SYR ONE (15:14)
[2020-02-09] MEDS ORDERED: fentaNYL citrate 100 MCG/2 ML VIAL ONE ×2 (15:14)
[2020-02-09] MEDS ORDERED: LIDOCAINE 2% JELLY 5 ML TUBE ONE (15:25)
--- NOTE | 2020-02-09 15:37 | History & Physical Bridge Note ---
Date of Service February 09, 2020 History & Physical Bridge Note I have examined the patient, reviewed the History & Physical and in the interval since the performance of the History & Physical I have noted the following changes of clinical significance: no changes noted. OK for surgery--more intraoral swelling associated with tooth # 28.
[2020-02-09] MEDS ORDERED: BUPIVACAINE/EPINEPHRINE 0.5% 1:200,000 1.8 ML CARP INFIL ONE (16:06)
[2020-02-09] MEDS ORDERED: CHLORHEXIDINE GLUCONATE 0.12% 480 ML MT ONE (16:07)
[2020-02-09] MEDS ORDERED: SUCCINYLCHOLINE CHLORIDE 20 MG/ML 10 ML VIAL IV ONE (16:20)
[2020-02-09] MEDS ORDERED: ROCURONIUM BROMIDE 10 MG/ML 5 ML VIAL IV ONE (16:20)
--- NOTE | 2020-02-09 16:25 | Post Operative Brief Note ---
PG Immediate Post Op with CF Date of Surgery February 09, 2020 Pre & Post Diagnosis Operation Date: 02/09/20 12:55 Pre-Op Diagnosis: submandibular/submental abscess Post-Op Diagnosis: submandibular/submental abscess I identified the patient and participated in the time-out.: Yes Procedure Operation Date: 02/09/20 12:55 Actual Procedures p Incision and Drainage Submandibular Abscess; Removal of Tooth #28(Not Applicable) - Derik King, LALITA Surgeon Derik King, LALITA Dental Equipment Repairer none Estimated Blood Loss 3 Findings Consistent with Post-Op Diagnosis Specimens Specimen Description: Culture #1: Submandibular Abscess
--- NOTE | 2020-02-09 16:56 | Anesthesiology Progress Note ---
Date of Service February 09, 2020 Anesthesia Post Procedure Vital Signs Vital Signs: Temp Pulse Resp BP BP Pulse Ox 02/09/20 14:36 36.8 C 79 16 127/74 95 02/09/20 07:15 36.9 C 59 L 15 108/70 98 02/08/20 23:47 37.0 C 67 14 90/62 L 95 Pain Intensity Jaw: Pain Intensity: 5 Transfer of Care Handoff Completed per policy Notes Mental Status: alert / awake / arousable and participated in evaluation Patient Amnestic to Procedure: Yes Nausea / Vomiting: adequately controlled Pain: adequately controlled Airway Patency, RR, SpO2: stable & adequate BP & HR: stable & adequate Hydration State: stable & adequate Anesthetic Complications: no major complications apparent and Pt Satisfied with anesthetic care
[2020-02-09] MEDS: TRAZODONE HCL 100 MG TAB PO SCH (20:33)
[2020-02-10] MEDS ORDERED: VANCOMYCIN TROUGH ONE (03:30)
[2020-02-10] MEDS: MoRPHine SULFATE 2 MG/ML CARP IV PRN (04:00)
[2020-02-10] MEDS: VANCOMYCIN HCL 1,250 MG in SODIUM CHLORIDE 0.9% 250 ML IV SCH (04:21)
[2020-02-10 04:39] LABS: Hematocrit (blood only) 37.1 % (37-47); Hemoglobin 12.5 g/dL (12.0-16.0); Mean Corpuscular Hemoglobin 30.8 pg (25-34); Mean Corpuscular Hgb Conc 33.7 g/dL (32-36); Mean Corpuscular Volume 91.4 fL (80-100); Mean Platelet Volume 8.9 fL (7.4-10.4); Platelet Count 272 K/uL (130-400); RDW Coefficient of Variation 14.4 % (11.5-14.5); RDW Standard Deviation 47.6 fL (36.4-46.3); Red Blood Count 4.06 M/uL (4.2-5.4); White Blood Count 19.81 K/uL (4.8-10.8)
[2020-02-10 05:21] LABS: Albumin Level 2.4 gm/dl (3.4-5.0); BUN Creatinine Ratio 14.6 (10-20); Calcium 7.8 mg/dl (8.5-10.1); Creatinine Clr Calc Pharmacy 95.1 ml/min; Est GFR (Non-African American) 108.7; Potassium 3.9 mmol/L (3.5-5.1)
[2020-02-10 05:23] LABS: Albumin Globulin Ratio 0.8 (0.9-2); Bilirubin,Total 0.3 mg/dl (0.2-1); Globulin 3.2 gm/dl (2.5-4.0); Total Protein 5.6 gm/dl (6.4-8.2)
--- NOTE | 2020-02-10 07:18 | Hospitalist Progress Note ---
Date of Service February 09, 2020 Assessment & Plan (1) Facial cellulitis: - Admit to med surg for failure of outpatient antibiotics. - CT of the neck involves edema, consider sialadenitis with a possible stone in place? - Consider ENT consult Mild submetal soft tissue stranding with increased number nonenlarged probable reactive nodules, consistent with cellulitis/adenitis. No focal abscess. -S/p Incision and Drainage Submandibular Abscess; Removal of Tooth #28(Not Applicable) - Derik King, DMD - Continue rocephin, vanc IV for now -As patient has some clinical improvement prior to I and D, will hold anaerobic coverage. - Cont decadron IV x 24 hrs and then can likely dc - Pain control with toradol, tylenol - antiemetics with zofran (2) Carotid artery stenosis: - Hx of such, not on lipid modifying medications (3) Dyslipidemia: - Hx of such, lipids to be followed with fasting labs or as outpt (4) Hyperthyroidism: - Cont methimazole 5 mg daily (5) ADHD: - Continue adderal xr and vraylar - follows with Mrs. Bunn at [facility], psychiatry as outpatient (6) Anxiety: (7) Depression: - Cont effexor, trazodone (8) DVT prophylaxis: teds, ambulatory CODE: FULL Dispo: discharge in AM. Admission and Anticipated Discharge Date Admission Date: February 08, 2020 Subjective Patient reports that she has pain and swelling after the procedure which included tooth extraction. She did feel better prior to procedure. She thinks she can be ready for discharge in AM. Review of Systems Review of Systems: All systems reviewed & are unremarkable except as noted in HPI & below Physical Exam Physical Exam: General: awake, alert, no apparent distress Head: Normocephalic, atraumatic ENT: PERRL, EOMI, no pharyngeal exudate, mucous membranes moist, + decreased sublingual edema Chest: Clear to auscultation, on room air, no adventitious breath sounds Cardiac: Regular rate and rhythm, no murmur, no JVD, normal peripheral pulses, good capillary refill Abdominal: NABS x 4 quadrants, soft, nontender to palpation, no rebound, guarding or tenderness Extremities: Normal inspection, no peripheral edema or erythema, calfs nontender to palpation Psych: Normal mood and affect Neuro: AAO x 3, strength intact bilaterally and rated 5/5, no motor deficits, speech is clear, no peripheral sensory deficits Results & Data Results & Data ([facility]) Vital Signs (Past 12 Hours) Vital Signs Temp Pulse Resp BP BP Pulse Ox 02/10/20 04:28 36.5 C 92 H 18 95/63 L 93 02/09/20 23:00 36.5 C 92 H 16 89/60 L 93 PG Care Time/CCT Total # of Minutes Spent Total Time Spent with Patient: Total time spent is greater than 50% in coordination of care (as documented) at patient's floor/unit and/or counseling patient: Coding Level of Care Code 75191 Subseq Hosp Care Lvl 2 Diagnoses Facial cellulitis L03.211 Carotid artery stenosis I65.29 Dyslipidemia E78.5 Hyperthyroidism E05.90 ADHD F90.9 Anxiety F41.9 Depression F32.9 DVT prophylaxis Z29.9 Time Spent (min) 25
[2020-02-10] MEDS: KETOROLAC 30 MG/ML VIAL IV PRN (07:44)
[2020-02-10] MEDS: ATOMOXETINE HCL 25 MG CAPSULE PO SCH (08:58)
[2020-02-10] MEDS ORDERED: methIMAzole 5 MG TABLET PO SCH (09:00)
[2020-02-10] MEDS: methIMAzole 5 MG TABLET PO SCH (09:03)
[2020-02-10] MEDS: VENLAFAXINE HCL XR 75 MG CAPXR PO SCH (09:03)
[2020-02-10] MEDS: DEXTROAMPHETAMINE/AMPHETAMINE ER 5 MG CAP PO SCH (09:03)
--- NOTE | 2020-02-10 09:08 | Surgery Progress Note ---
Date of Service Marissa is doing very well this AM. The swelling is resolving and much softer. The I&D site looks good and the tissue tone is healthy. I feel she can be D/C today on be placed on clindamycin oral (she has this at home) Her family dentist can follow (to save her a trip to [place]) and she has my contact info. if she wants me to see her post op in 10-14 days. I reviewed the post op instructions, Rx the pain meds and completed my part of the discharge forms. Thanks for the consult. Derik King February 10, 2020 Assessment & Plan (1) Facial cellulitis: - Admit to med surg for failure of outpatient antibiotics. - CT of the neck involves edema, consider sialadenitis with a possible stone in place? - Consider ENT consult Mild submetal soft tissue stranding with increased number nonenlarged probable reactive nodules, consistent with cellulitis/adenitis. No focal abscess. - NSS while NPO - Continue rocephin, vanc IV for now - Cont decadron IV x 24 hrs and then can likely dc - NPO for now, advance diet as tolerated once swelling improves, possibly later tonight - Pain control with toradol, tylenol - antiemetics with zofran Admission and Anticipated Discharge Date Admission Date: February 08, 2020 Results & Data ([facility]) Vital Signs (Past 12 Hours) Vital Signs Temp Pulse Pulse Resp BP BP Pulse Ox 02/10/20 07:43 36.5 C 59 L 16 96/63 L 99 02/10/20 04:28 36.5 C 92 H 18 95/63 L 93 02/09/20 23:00 36.5 C 92 H 16 89/60 L 93 PG Care Time/CCT Total # of Minutes Spent Total Time Spent with Patient: Total time spent is greater than 50% in coordination of care (as documented) at patient's floor/unit and/or counseling patient: Coding Level of Care Code 30903 Subseq Hosp Care Lvl 1 Diagnoses Facial cellulitis L03.211
--- NOTE | 2020-02-10 16:59 | Discharge Summary ---
Date of Service February 10, 2020 Admission HPI Per Admitting Provider This is a 49 yo F with PMHx of carotid artery stenosis, HLD, asthma, depression, ADHD, anxiety, GERD, nephrolithiasis, hyperthyroidism who presents from [facility] with facial cellulitis which failed outpatient antibiotics. She initially noticed worsening swelling and pain which began earlier this week. She went to urgent care clinic on Tuesday 02/06 due to the significant pain in her right side of the mouth and sublingually, as well as increased swelling. They gave her an antibiotic and was able to take 4 doses of this prior to presenting to [facility]. Once there was given vancomycin, rocephin and decadron 4 mg IV where her symptoms improved. WBC elevated at 18.43. She denies any recent dental issues, no broken teeth or trauma to the mouth. She denies having this before. Her pain and swelling have improved at this time compared to this morning. She reports having sweats and chills, but no documented fever. She was taking tylenol and ibuprofen at home for the pain, and reports vomiting x 1 last night but thinks this was due to an empty stomach. Pt has been unable to tolerate oral intake for 3 days but has been able to take sips of liquids and could swallow her medications as prescribed. She denies any other acute complaints. Principal Diagnosis Peridental and sublingual abscesses from tooth infection Discharge Exam Constitutional WD/WN, vitals as above Eyes EOM intact bilaterally; no conjunctival abnormality ENMT external ear and nose normal, oropharynx normal Neck trachea midline, no thyromegaly + anterior neck swelling (Mild) Respiratory normal respiratory effort, lungs clear to auscultation no respiratory distress Cardiovascular RRR, no murmur, no edema Gastrointestinal (Abdomen) Inspection/Auscultation: abdomen normal to inspection; abdomen not distended Musculoskeletal no cyanosis or clubbing, extremities motor strength 5/5 Skin no rashes, warm and dry Neurologic moves all extremities and awake Psychiatric Orientation: alert, oriented to person and cooperative Discharge Data Allergies Allergy/AdvReac Type Severity Reaction Status Date / Time lurasidone [From Latuda] Allergy Severe TACHYCARDIA, Verified 12/14/19 13:33 LIGHTHEADED Penicillins Allergy Severe THROAT Verified 12/14/19 13:33 SWELLING risperidone Allergy Severe VISION Verified 12/14/19 13:33 LOSS, DIFFICULTY WALKING bupropion [From Wellbutrin] AdvReac Severe SEVERE Verified 12/14/19 13:33 REFLUX, SEVERE ABDOMINAL PAIN WITH EROSIONS aripiprazole [From Abilify] AdvReac Intermediate UPSET Verified 02/08/20 09:43 STOMACH Tetracyclines AdvReac Intermediate SICK TO Verified 02/08/20 09:43 STOMACH Consultations 02/08/20 14:30 Consult Otolaryngology (Head and Neck) Routine Procedures Performed Operation Date: 02/09/20 12:55 Actual Procedures p Incision and Drainage Submandibular Abscess; Removal of Tooth #28(Not Applicable) - Derik King DMD Ordered Studies 02/08/20 19:45 CT facial bones wo con Urgent Hospital Course (1) Facial cellulitis: - Admit to med surg for failure of outpatient antibiotics. - CT of the neck involves edema, consider sialadenitis with a possible stone in place? - Consider ENT consult Mild submental soft tissue stranding with increased number nonenlarged probable reactive nodules, consistent with cellulitis/adenitis. No focal abscess. -S/p Incision and Drainage Submandibular Abscess; Removal of Tooth #28(Not Applicable) - Derik King DMD - Discharged on 6 more days of clindamycin per OMFS and chlorhexadine mouthwash. Will follow up with her normal dentist unless she wishes to return to Dr. King. (2) Carotid artery stenosis: - Hx of such, not on lipid modifying medications (3) Dyslipidemia: - Hx of such, lipids to be followed with fasting labs or as outpt (4) Hyperthyroidism: - Cont methimazole 5 mg daily (5) ADHD: - Continue adderal xr and vraylar - follows with Mrs. Bunn at [facility], psychiatry as outpatient (6) Anxiety: (7) Depression: - Cont effexor, trazodone (8) DVT prophylaxis: teds, ambulatory CODE: FULL Dispo: discharge in AM. Total Time Total Time Spent Total Time Spent (In Minutes): 35 Discharge Plan Discharge Items Patient Disposition: Home - Self-Care Reason For Visit: SUBLINGUAL ABSCESS Discharge Diagnosis: Submental, sublingual abscess secondary to infected # 28 tooth Condition on Discharge: Good Activity: Resume your previous activity Lifting: Gradually increase as tolerated Bathing: No limitations Exercise/Sports: Gradually increase as tolerated Driving/Machine Use: Resume 1 day after discharge Weightbearing: Full weightbearing Non-emergency contact: Surgeon Call non-emergency contact if: you have any medication questions, your temperature is above 101.5, your wound has increased redness, your wound has increased drainage and your wound pain has increased Follow-up/Referrals: Robe Nagy MD [Primary Care Provider] - Derik King DMD [Physician] - Diet: Other - See Diet Comment Diet Comment: Diet as tolerated Addtl Attending Provider Instructions: ADDITIONAL ACTIVITY RECOMMENDATIONS: * Ideal teeth after every meal. It is very important to keep your mouth clean to prevent infection. * Use the Peridex 2 x a day starting once you get home SPECIAL CARE INSTRUCTIONS: *Once you get home apply heat (hot water bottle or heating pad) for the next two days, as often as possible. * Tomorrow start rinsing your mouth with 1/2 teaspoon salt in 8 ounces warm water. This rinse should be used every 4-6 hours. * You may experience slight nausea. To prevent this, never take your medication on an empty stomach. If nauseated, take small sips of jhoan edy until you feel better; then you may start on applesauce and toast. * Some swelling is common. It should gradually decrease within 4-5 days. * A certain amount of bleeding is to be expected. It is often possible to control mild oozing by placing folded gauze over the area and biting down for 30 minutes. If you are unable to control excessive bleeding, call Dr King at [phone] * You may experience some discomfort for a few days. If pain or swelling increases, Call Dr King * the sutures will dissolve as will the swelling. Usually the swelling will subside w/in 7-10 days. if all is going well there is no need for a follow up visit with me. If you have any concerns I would be would more than happy to see you. Please call my office to make arrangements. Pending Studies at Discharge: Yes Studies:: Results of the C & S of the infection Stand-Alone Forms: My [facility], Opioid Pain Management, Smoking Cessation Medications and DC Order Prescriptions: Continued venlafaxine 225 mg Tablet Extended Release 24hr 225 mg PO QAM Qty: 0 RF: 0 methimazole 5 mg tablet 5 mg PO DAILY Qty: 30 RF: 0 Strattera 100 mg capsule 100 mg PO QAM RF: 0 trazodone 100 mg tablet 100 mg PO HS RF: 0 dextroamphetamine-amphetamine [Adderall XR] 15 mg capsule,extended release 24hr 15 mg PO QAM RF: 0 hydrocodone-acetaminophen 5-325 mg tablet 1 tab PO Q4H PRN (Reason: pain) Qty: 14 RF: 0 Vraylar 3 mg Capsule 3 mg PO HS RF: 0 Discharge Orders: Discharge Order (Routine); Ordered 02/10/20 Ordered By: Derik Herring/Other Patient Handouts: ED Dental Abscess with Facial Cellulitis, ED Tooth Abscess Admission Data Admit Date/Time: 02/08/20 11:12 Attending Provider: Melecio Cottrell Admit Provider: Jomar Mitchell Primary Care Provider: Robe Nagy Other Providers: Derik King Other Interventions: Discharge Summary Assessment (RN) Last Done: 02/10/20 11:24 Coding Level of Care Code D/C Day Management >30 mins Diagnoses Facial cellulitis L03.211 Carotid artery stenosis I65.29 Dyslipidemia E78.5 Hyperthyroidism E05.90 ADHD F90.9 Anxiety F41.9 Depression F32.9 DVT prophylaxis Z29.9
--- NOTE | 2020-02-11 21:52 | Operative Report ---
Post Operative Report Pre & Post Diagnosis Operation Date: 02/09/20 12:55 Pre-Op Diagnosis: submandibular/submental abscess Post-Op Diagnosis: submandibular/submental abscess I identified the patient and participated in the time-out.: Yes Procedure Operation Date: 02/09/20 12:55 Actual Procedures p Incision and Drainage Submandibular Abscess, Submental space, subperiosteal space ;Surgical Removal of Tooth #28 (Not Applicable) - Derik King DMD Once cleared for surgery general anesthesia was achieved, the eyes were pro tected by the anesthesia dept criteria.. A time out was take for patient ID, antibiotics, equipment and position verification once all agreed the procedure began. Local anesthesia using Marcaine with a vasoconstrictor ( 1.8 ml per site) given into right inferior alveolar nerve A throat pack was placed after the oral cavity was irrigated with saline. Once a surgical level of anesthesia was obtained and the local anesthesia was given time for the blocks the surgery was started. I turned my attention to the infection which was located in the floor of the mouth and submental area. The tongue was elevated and there was also swelling associated with tooth # 28 ( see CT scan report) Incision and Drainage Using a 15 blade an incision was made lateral to the alveolar ridge and medial to the duct of the submandibular gland. Once the incision was made a lot of pus extruded from the site. This drainage was cultured for anaerobic and aerobic bacteria. A curved hemostat was carefully placed into the infected space along the medial side of the lower jaw and into the submental space. Some further drainage was now allowed to escape. I palpated the chin and submental area and no further drainage was expressed. The area was irrigated with at least 100 ml of NS solution. I now turned my attention to remove the # 28 tooth. Lower # 28 The full thick Muco-periosteal flap was made on the facial aspect from # 26-30. The flap was reflected to expose the the subperiosteal space the bone adjacent to # 28. The rogue was used to remove bone, the tooth was removed with a 301 elevator, the mental nerve was intact, there was a large amount of granulation tissue on the apex and some more pus that was expressed. The bone was trimmed, smoothed. I curetted the socket and as expected there was a perforation of the lingual plate which was the cause of the infection spreading into the floor of the mouth. The flap was closed with a few 2-0 chromic sutures. I inspected the sites to insure all bleeding was controlled. Given the excellent drainage from the opened socket I did feel a drain was necessary. I removed the throat pack and suctioned the throat. A gauze pressure dressings was placed. All instrument and sponge count was correct. the patient was allowed to awake from the anesthesia. Once full awake the anesthesia tube was removed and the patient was taken to the recovery room with all vital sign stable. The patient tolerated the surgery very well. I will follow the patient as needed, Rx and instructions will be given upon brian perez. Surgeon Derik King, DMD Echocardiograph Technician none Estimated Blood Loss 3 Findings Consistent with Post-Op Diagnosis Specimens drainage form right submental/lingual space Description of Procedure I&D for floor of themouth and submental space I attest to the content of the Intraoperative Record and any orders documented therein. Any exceptions are noted below.
== END 2020-02-10 12:27 | disposition home or self-care (01) | DRG 580 ==
LOC: SUATTDRO 11:12 → 3N 11:12

== ENCOUNTER 2023-08-31 09:24 | Inpatient (IN) ==
--- NOTE | 2023-08-31 09:57 | Emergency Department Note ---
Impression & Plan Anxiety ED Provider Note Provider: Colin Owens MD DATE OF SERVICE: 08/31/2023 CHIEF COMPLAINT: Chest pressure, numbness, shortness of breath, anxiety HISTORY OF PRESENT ILLNESS: Patient is a 53-year-old female past medical history of Graves' disease, hyperlipidemia, ADHD, depression, PTSD, GERD, and anxiety presenting here today reporting over the past week she has had onset of symptoms. 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 Not sleeping much. Does endorse anxiety. Reports some chest tightness and pressure with some shortness of breath and numbness in her extremities. Some nauseousness but no vomiting. No abdominal pain really reported maybe a bit of heartburn. No trauma. Feeling depressed and anxious. Has talked with psychiatrist and switch to guanfacine. Has not been helpful. Used to take lorazepam. Denies again wanting to harm herself or others. Denies hallucinations. States she does have some thoughts at times about maybe not wanting to wake up. Denies drug or alcohol use. PAST MEDICAL HISTORY: As noted above MEDICATIONS: Reviewed home medications SOCIAL HISTORY: Lives by herself, denies drug or alcohol use PHYSICAL EXAM: GENERAL: alert and oriented on stretcher appears slightly tearful. Head: normocephalic and atraumatic EYES: No injection, purulent discharge or icterus. NECK: Trachea midline. ENT: Mucous membranes pink and moist. LUNGS: Airway patent. No retractions. Breath sounds clear with good air entry bilaterally. HEART: Regular rate and rhythm. No chest wall tenderness ABDOMEN: Soft and non-tender, without guarding or rebound. SKIN: Acyanotic, warm, dry, without rashes EXTREMITIES: Without swelling, tenderness or deformity NEUROLOGICAL: No focal deficits moving all extremities. No aphasia. No facial droop or slurred speech. Ambulatory. Psych: Anxious. Slightly tearful. Denies active SI or HI but has some thoughts of not wanting to be alive. Not responding to external stimuli and denies hallucinations. EK bpm normal sinus rhythm. No PVC or PAC. No acute ST segment elevation or depression with a QTc of 496. CONTINUOUS CARDIAC MONITORING: was ordered and showed a heart rate of 70s bpm in normal sinus rhythm Patient's laboratory studies and imaging reviewed. Differential includes Mood disorder, infection, hypoglycemia, electrolyte abnormalities, cardiac sources, intracerebral event, toxicologic, trauma, neurologic, as well as other pathologies. IMPRESSION/MEDICAL DECISION MAKING: Patient anxious. Patient denies acute SI or HI with some passive thoughts of not wanting to be alive. Evidently lost income. Follows with outpatient psychiatrist. Tried guanfacine recently without real improvement. Given a bit Ativan here to help with symptoms. Basic labs obtained. Will obtain chest x- ray and EKG as well as troponin given reports of some chest pressure but seems likely more anxiety related. No focal numbness or weakness generalized as well as some nausea seems consistent with likely anxiety. Seen with assistant product manager here. Chest x-ray reassuring here per radiology. EKG without significant abnormality noted borderline prolonged QT of 496. Slight leukocytosis of 14. No anemia. Slight hypokalemia 3.3 with normal renal function. Noticed acute hepatitis or pancreatitis. Negative . Urinalysis indicative of some ketones and blood and will try some oral hydration. Negative COVID testing. Patient with some improvement states when she thinks about going home on reevaluation develops chest tightness again. Case management has made referral to [facility]. to see if they have availability and would excepted for inpatient treatment. Did give her little bit extra oral Ativan to help with symptoms in the meantime. Accepted to [facility] for inpatient mental health treatment for her anxiety on a voluntary basis. DIAGNOSIS: Anxiety and depression, atypical chest pain DISPOSITION: Accepted to [facility] for further inpatient treatment for anxiety on a 201. Past Med/Surg History Medical History ADHD Anxiety Asthma Depression Fatigue GERD (gastroesophageal reflux disease) Graves disease Hx of carotid artery stenosis Hx of esophageal spasm Hx of migraines Hyperlipidemia Hyperthyroidism Kidney stones Post traumatic stress disorder Sweating abnormality Surgical History History of arthroscopy History of bilateral tubal ligation History of esophagogastroduodenoscopy (EGD) History of tonsillectomy History of tooth extraction Hx of colonoscopy Status post Chantal fundoplication Family History Mother Depression Breast cancer Brother Bipolar disorder Depression Father Myocardial infarction Hypertension Other No family history of adverse response to anesthesia Denies family history of Ovarian cancer Prostate cancer Colorectal cancer Social History (Reviewed 04/22/23 @ 10:26 by ENRIQUETA Marino Smoking Status: Current every day smoker Tobacco Type: Cigarettes Cigarettes Per Day: 15; Second Hand Exposure: No; Do You Dip or Chew Tobacco: No; Hx Alcohol Use: Yes Hx Substance Use: No Preferred Language: Danish Communication Ability: Effective Architecture Faculty Member Required: No Beliefs That Will Affect Care: None Current Living Situation: Family Current Living Situation Comment: son lives with pt Feels Safe at Home: Yes Gender Identity: Female Assistive Devices: None Allergies Allergies Allergy/AdvReac Type Severity Reaction Status Date / Time lurasidone [From Latuda] Allergy Severe TACHYCARDIA, Verified 04/22/23 10:23 LIGHTHEADED Penicillins Allergy Severe THROAT Verified 04/22/23 10:23 SWELLING risperidone Allergy Severe VISION Verified 04/22/23 10:23 LOSS, DIFFICULTY WALKING bupropion [From Wellbutrin] AdvReac Severe SEVERE Verified 04/22/23 10:23 REFLUX, SEVERE ABDOMINAL PAIN WITH EROSIONS aripiprazole [From Abilify] AdvReac Intermediate UPSET Verified 04/22/23 10:23 STOMACH Tetracyclines AdvReac Intermediate SICK TO Verified 04/22/23 10:23 STOMACH Home Meds Home Medications Medication Instructions Recorded Confirmed venlafaxine 150 mg 75 mg PO DAILY 07/16/22 08/31/23 capsule,extended release 24 hr guanfacine 2 mg tablet 2 mg PO HS 08/31/23 08/31/23 methimazole 5 mg tablet 5 mg PO Q OTHER DAY 08/31/23 08/31/23 methylphenidate HCl 18 mg 18 mg PO DIRECTED PRN Take as 08/31/23 08/31/23 tablet,extended release 24 hr needed for ADHD Previous Rx's Medication Instructions Recorded solifenacin 10 mg tablet 10 mg PO DAILY #90 tabs 06/25/23 Results & Data (ED) Vital Signs Vital Signs - 24 hr 08/31/23 09:31 08/31/23 09:31 08/31/23 11:04 Temperature 37.0 C 36.6 C Temperature Source Oral Oral Pulse Rate 110 H Pulse Rate [Finger] 110 H 93 H Pulse Rhythm [Finger] Regular Pulse Strength [Finger] Normal Respiratory Rate 20 20 17 Respiratory Effort / Characteristics Non-Labored Spontaneous Respiratory Depth Normal Respiratory Pattern Regular Blood Pressure 158/88 H Blood Pressure [Right Arm] 158/88 H 108/63 Blood Pressure Mean 111 Blood Pressure Mean [Right Arm] 111 78 Blood Pressure Position [Right Arm] Lying Pulse Oximetry 99 99 95 Oxygen Delivery Method Room Air Room Air Sepsis Recent Fever Within 48 Hours No Sepsis New/Unexplained Change in Mental Status No Sepsis Action Taken by Nursing No Action Required 08/31/23 12:29 Temperature Temperature Source Pulse Rate Pulse Rate [Finger] 96 H Pulse Rhythm [Finger] Pulse Strength [Finger] Respiratory Rate 16 Respiratory Effort / Characteristics Non-Labored Spontaneous Respiratory Depth Normal Respiratory Pattern Regular Blood Pressure Blood Pressure [Right Arm] 123/84 Blood Pressure Mean Blood Pressure Mean [Right Arm] 97 Blood Pressure Position [Right Arm] Pulse Oximetry 99 Oxygen Delivery Method Room Air Sepsis Recent Fever Within 48 Hours Sepsis New/Unexplained Change in Mental Status Sepsis Action Taken by Nursing Laboratory Data 08/31/23 09:39 08/31/23 09:39 Lab Results 08/31/23 08/31/23 Range/Units 09:31 09:39 WBC 14.74 H (4.8-10.8) K/ul RBC 4.88 (4.20-5.40) M/uL Hgb 14.9 (12.0-16.0) g/dl Hct 45.0 (37.0-47.0) % MCV 92.2 (80.0-100.0) fL MCH 30.5 (25.0-34.0) pg MCHC 33.1 (32.0-36.0) g/dL RDW Std Deviation 40.7 (36.4-46.3) fL RDW Coeff of Corina 12.0 (11.5-14.5) % Plt Count 314 (130-400) K/uL MPV 9.7 (9.4-12.4) fL Immature Gran % (Auto) 0.8 % Neut % (Auto) 79.3 % Lymph % (Auto) 15.9 % Giles % (Auto) 3.7 % Eos % (Auto) 0.0 % Baso % (Auto) 0.3 % Neut # (Auto) 11.69 H (1.40-6.50) K/uL Lymph # (Auto) 2.35 (1.20-3.40) K/uL Giles # (Auto) 0.54 (0.11-0.59) K/uL Eos # (Auto) 0.00 (0.00-0.50) K/uL Baso # (Auto) 0.04 (0.00-0.20) K/uL Immature Gran # (Auto) 0.12 (0.01-0.20) K/uL Sodium 137 (136-145) mmol/L Potassium 3.3 L (3.5-5.1) mmol/L Chloride 102 (98-107) mmol/L Carbon Dioxide 20 L (21-32) mmol/L Anion Gap 15 H (3-11) BUN 10 (6-23) mg/dl Creatinine 0.81 (0.6-1.2) mg/dl Est Cr Clr Drug Dosing 66.0 ml/min Est GFR ( Amer) 95.4 ml/min Est GFR (Non-Af Amer) 82.3 ml/min BUN/Creatinine Ratio 12.3 (10-20) Glucose 99 (70-99(Fasting)) mg/dl Calcium 9.3 (8.6-10.3) mg/dl Total Bilirubin 0.5 (0.2-1.0) mg/dl AST 17 (13-39) U/L ALT 15 (7-52) U/L Alkaline Phosphatase 77 (34-104) U/L Troponin I High Sens 4.7 (0-14) pg/ml Total Protein 7.9 (6.0-8.3) gm/dl Albumin 5.0 (3.4-5.0) gm/dl Globulin 2.9 (2.5-4.0) gm/dl Albumin/Globulin Ratio 1.7 (0.9-2) Lipase 64 (11-82) U/L TSH 0.227 L (0.300-4.500) uIu/ml Free T4 1.22 (0.61-1.60) ng/dl HCG, Qual Negative (Negative) Urine Color Yellow Urine Appearance Cloudy A (Clear) Urine pH 6.0 (4.5-7.5) Ur Specific [place] 1.025 (1.000-1.030) Urine Protein Trace H (Negative) Urine Glucose (UA) Negative (Negative) Urine Ketones 4+ H (Negative) Urine Blood 3+ H (Negative) Urine Nitrite Negative (Negative) Urine Bilirubin Negative (Negative) Urine Urobilinogen Negative (Negative) Ur Leukocyte Esterase Negative (Negative) Urine WBC (Auto) 1-5 (0-5) /hpf Urine RBC (Auto) 10-30 H (0-4) /hpf U Hyaline Cast (Auto) 1-5 (0-5) /lpf U Epithel Cells (Auto) >30 H (0-5) /lpf Urine Bacteria (Auto) 1+ H (Negative) Salicylates < 3.0 L (3.0-30) mg/dl Urine Opiates Screen Neg (Neg) Ur Methadone, Qual Neg (Neg) Acetaminophen 11 (10-30) ug/ml Urine Barbiturates Neg (Neg) Ur Phencyclidine (PCP) Neg (Neg) U Amphetamin/Meth Scrn Neg (Neg) MDMA (Ecstasy) Screen Neg (Neg) U Benzodiazepines Scrn Neg (Neg) Ur Cocaine Metabolite Neg (Neg) U Marijuana (THC) Screen Neg (Neg) Ethyl Alcohol mg/dL < 10.0 (<10.0) mg/dl SARS-CoV-2, RNA, NAAT NEGATIVE (NEGATIVE) Administered Medications Discontinued Medications Lorazepam (Lorazepam 1 Mg Tab) 1 mg PO NOW STA Stop: 08/31/23 09:54 Last Admin: 08/31/23 09:59 Dose: 1 mg Documented By: OTILIA Lorazepam (Lorazepam 0.5 Mg Tab) 0.5 mg PO NOW STA Stop: 08/31/23 12:42 Last Admin: 08/31/23 12:51 Dose: 0.5 mg Documented By: RYANN Imaging Data Radiologist's Impression: Chest X-Ray 08/31/23 09:53 XR chest 1V portable HISTORY: 53 years-old Female cp acute chest pain COMPARISON: 09/05/2018 TECHNIQUE: AP view the chest FINDINGS: Cardiomediastinal and hilar silhouettes are within normal limits. No pneumothorax, pleural effusion or airspace consolidation. Bones appear grossly intact. IMPRESSION: No acute process. ACT 112: Negative or not required by law. The above report was generated using voice recognition software. It may contain grammatical, syntax or spelling errors. Electronically signed by: Eric Trevino M.D. 08/31/2023 10:27 AM Discharge Plan Visit Data Chief Complaint: Mental Health Evaluation ED Provider: Colin Owens Discharge Problem: Anxiety Patient Disposition: Home - Self-Care
[2023-08-31] MEDS: LORazepam 1 MG TAB PO STA (09:59)
[2023-08-31 10:07] LABS: Appearance Urine Cloudy (Clear); Bacteria Urine Automated 1+ (Negative); Bilirubin Urine Negative (Negative); Blood Urine 3+ (Negative); Color Urine Yellow; Epithelial Cell Urine Auto >30 /lpf (0-5); Glucose Urine UA Negative (Negative); Ketones Urine 4+ (Negative); Leukocyte Esterase Urine Negative (Negative); Nitrite Urine Negative (Negative); Protein Urine Trace (Negative); Specific Gravity Urine 1.025 (1.000-1.030); Urobilinogen Urine Negative (Negative)
[2023-08-31 10:14] LABS: Basophils # (auto) 0.04 K/uL (0.00-0.20); Basophils % (auto) 0.3 %; Hemoglobin 14.9 g/dl (12.0-16.0); Immature Granulocytes # (auto) 0.12 K/uL (0.01-0.20); Immature Granulocytes % (auto) 0.8 %; Lymphocytes # (auto) 2.35 K/uL (1.20-3.40); Lymphocytes % (auto) 15.9 %; Mean Corpuscular Hemoglobin 30.5 pg (25.0-34.0); Mean Corpuscular Hgb Conc 33.1 g/dL (32.0-36.0); Mean Corpuscular Volume 92.2 fL (80.0-100.0); Mean Platelet Volume 9.7 fL (9.4-12.4); Monocytes # (auto) 0.54 K/uL (0.11-0.59); Monocytes % (auto) 3.7 %; Neutrophils # (auto) 11.69 K/uL (1.40-6.50); Neutrophils % (auto) 79.3 %; Platelet Count 314 K/uL (130-400); RDW Standard Deviation 40.7 fL (36.4-46.3); Red Blood Count 4.88 M/uL (4.20-5.40); White Blood Count 14.74 K/ul (4.8-10.8)
[2023-08-31 10:29] LABS: Pregnancy Test, Serum Negative (Negative)
--- NOTE | 2023-08-31 10:29 | XRay Report ---
XR chest 1V portable HISTORY: 53 years-old Female cp acute chest pain COMPARISON: 09/05/2018 TECHNIQUE: AP view the chest FINDINGS: Cardiomediastinal and hilar silhouettes are within normal limits. No pneumothorax, pleural effusion o r airspace consolidation. Bones appear grossly intact. IMPRESSION: No acute process. ACT 112: Negative or not required by law. The above report was generated using voice recognition software. It may contain grammatical, syntax o r spelling errors. Electronically signed by: Eric Trevino M.D. 08/31/2023 10:27 AM
[2023-08-31 10:38] LABS: Albumin Globulin Ratio 1.7 (0.9-2); BUN Creatinine Ratio 12.3 (10-20); Bilirubin,Total 0.5 mg/dl (0.2-1.0); Calcium 9.3 mg/dl (8.6-10.3); Est GFR (African American) 95.4 ml/min; Est GFR (Non-African American) 82.3 ml/min; Globulin 2.9 gm/dl (2.5-4.0); Potassium 3.3 mmol/L (3.5-5.1); Total Protein 7.9 gm/dl (6.0-8.3)
[2023-08-31 10:41] LABS: Troponin I High Sensitivity 4.7 pg/ml (0-14)
[2023-08-31 10:43] LABS: Amphetamines+Metham, Urine Neg (Neg); Barbiturates, Urine Neg (Neg); Benzodiazepine, Urine Neg (Neg); Cocaine, Urine Neg (Neg); MDMA (Ecstacy), Urine Neg (Neg); Marijuana, Urine Neg (Neg); Methadone, Urine Neg (Neg); Opiate, Urine Neg (Neg); Phencyclidine, Urine Neg (Neg)
[2023-08-31 10:49] LABS: Thyroid Stimulating Hormone 0.227 uIu/ml (0.300-4.500)
[2023-08-31 10:58] LABS: Acetaminophen 11 ug/ml (10-30); Salicylate < 3.0 mg/dl (3.0-30)
[2023-08-31 11:23] LABS: T4 Free Thyroxine 1.22 ng/dl (0.61-1.60)
--- NOTE | 2023-08-31 11:36 | Electrocardiogram Report ---
Test Reason : Blood Pressure : / mmHG Vent. Rate : 090 BPM Atrial Rate : 090 BPM P-R Int : 144 ms QRS Dur : 080 ms QT Int : 406 ms P-R-T Axes : 059 083 060 degrees QTc Int : 496 ms Normal sinus rhythm Prolonged QT Abnormal ECG When compared with ECG of 05-MAY-2022 13:52, No significant change was found Confirmed by Marcus Villeda ([id number]) on 08/31/2023 11:35:52 AM Referred By: REFERRED SELF Confirmed By:Marcus Villeda
[2023-08-31] MEDS: LORazepam 0.5 MG TAB PO STA (12:51)
[2023-08-31] MEDS ORDERED: NICOTINE POLACRILEX 2 MG GUM MT PRN (13:58)
[2023-08-31] MEDS ORDERED: ALUMINUM/MAGNESIUM SUSP 30 ML UDC PO PRN (13:58)
[2023-08-31] MEDS ORDERED: MAGNESIUM HYDROXIDE SUSP 30 ML UDC PO PRN (13:58)
[2023-08-31] MEDS ORDERED: BISMUTH SUBSALICYLATE LIQD 236 ML PO PRN (13:58)
[2023-08-31] MEDS ORDERED: SODIUM CHLORIDE 0.65% NA SOLN 45 ML (OCEAN) PRN (13:58)
[2023-08-31] MEDS ORDERED: ACETAMINOPHEN 325 MG TAB PO PRN (13:58)
[2023-08-31] MEDS: methIMAzole 5 MG TABLET PO SCH (19:21)
[2023-08-31] MEDS: LORazepam 0.5 MG TAB PO PRN (19:23)
[2023-08-31] MEDS: guanFACINE HCL 1 MG TAB PO SCH (21:15)
[2023-08-31] MEDS: hydrOXYzine HCl 25 MG TAB PO STA (22:16)
[2023-09-01] MEDS ORDERED: TAMSULOSIN HCL 0.4 MG CAP PO SCH (09:00)
[2023-09-01] MEDS: OXYBUTYNIN CHLORIDE XL 5 MG TABCR PO SCH (10:00)
--- NOTE | 2023-09-01 10:20 | Electrocardiogram Report ---
Test Reason : Blood Pressure : / mmHG Vent. Rate : 068 BPM Atrial Rate : 068 BPM P-R Int : 150 ms QRS Dur : 080 ms QT Int : 446 ms P-R-T Axes : 050 067 045 degrees QTc Int : 474 ms Poor data quality, interpretation may be adversely affected Normal sinus rhythm Normal ECG When compared with ECG of 31-AUG-2023 09:51, No significant change was found Confirmed by Marcus Villeda ([id number]) on 09/01/2023 10:19:27 AM Referred By: REFERRED SELF Confirmed By:Marcus Villeda
[2023-09-01] MEDS ORDERED: traZODone HCL 50 MG TAB PO PRN (11:43)
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
[2023-09-01] MEDS ORDERED: ZOLPIDEM TARTRATE 10 MG TAB PO PRN (12:04)
[2023-09-01] MEDS: VENLAFAXINE HCL XR 37.5 MG CAPXR PO SCH (12:10)
[2023-09-01] MEDS: LORazepam 1 MG TAB PO STA (18:02)
[2023-09-01] MEDS: ZOLPIDEM TARTRATE 5 MG TAB PO PRN (20:51)
[2023-09-01] MEDS: guanFACINE HCL 1 MG TAB PO SCH (20:51)
--- NOTE | 2023-09-02 13:37 | Discharge Summary ---
Date of Service September 02, 2023 History of Present Illness History reviewed and confirmed as per ED psych CM: Met with the patient during Dr. Palmer examination to complete Brief and Suicide Risk assessments. 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 The patient reports poor sleep over the past week where she wakes up feeling cold, clammy, sweaty and having chest pressure / GI upset. She reports she feels tired and cant breathe and feels she cant take it anymore feeling this way. The patient denies any hallucinations or drug use. Medical clearance explained. Patient presented to the ED with multiple vegetative symptoms of depression (poor concentration, energy, motivation, sleep, appetite) despite attempts at med changes in past week by outpatient telehealth provider. She reports decreasing her Effexor Xr from 225 mg to 75 mg on 08/13 while starting Concerta and is appears she was initiated on guanfacine 2 mg and Geodon trial with recent rx of 20 mg. Of note the patient's QTc in the ED was 496, EKG today revealed QTc 474 with holding Geodon and am Effexor XR. Patient's BP lower than baseline. Physical Exam Psychiatric See admission H&P and DOD assessment. Vital Signs (Past 24 Hours) Last Vital Signs Temp 35.8 C L 09/02/23 06:00 Pulse 83 09/02/23 06:04 Resp 16 09/02/23 06:00 BP 84/50 L 09/02/23 06:04 Pulse Ox 97 09/01/23 17:30 O2 Del Method Room Air 09/01/23 17:30 Principal Diagnosis major depressive disorder Psychiatric Data See daily stay summary. In short, safety was maintained and the patient was cooperative with care. Medication changes included d/c Geodon (QTc prolongation and was tapering; ?contribution to tremor), decreasing guanfacine to 1 mg (due to hypotension and lack of efficacy for sleep on an ongoing basis with further taper per outpatient prescriber), completing taper of Effexor XR (which was causing discontinuation syndrome), and they tolerated this well. She physically felt much better overnight and benefitted from both prn Ativan (1 mg more effective than 0.5 mg) and she received 1 dose of Ambien last pm with significant benefit. A family session was held and safety plan was completed prior to discharge which included confirmation that her guns were secure. The patient signed a 72 hr notice on afternoon of 08/31 but was willing to remain hospitalized for continued monitoring and medication adjustments overnight. She is continuing to request discharge today. She continues to deny she ever had active SI or plan and is physically feeling much improved and would prefer to manage her symptoms at home. She continues to decline therapy but was agreeable to CM referral. Reviewed that her condition is not yet fully stabilized but as she does not meet criteria for involuntary commitment, further confinement against her wishes seems counter-therapeutic. She can continue to work with her outpatient prescriber on taper of guanfacine and was given short supplies of prn Ativan and Ambien. She voiced understanding that she should not combine these medications due to additive effects and should not take if driving/operating machinery. Reviewed that controlled substance medications should only be taken as prescribed for short term use as can be habit forming. Day of Discharge Assessment Today the patient voices readiness for discharge. They note improvement in mood and deny thoughts to harm self or others. Thoughts remain organized and they are improved from admission. There is no evidence of psychosis. They agree to take mediations as prescribed and keep follow-up appointments. They are stable for discharge to outpatient level of care. Transition of Care Transition Of Care Record: was reviewed with the patient Advance Directives Advance Directives Information Provided: Yes Advance Directives: No Mental Health Advance Directive: No Advance Directives on File: No Living Will: No Power of X Ray Equipment Tester: No Advance Directives Reason:: Declines as Mental Health Visit. Suicide Risk Level Suicide Risk Level Comments: Suicide risk at discharge is deemed low as the patient is no longer requiring 24-hr monitoring, has a safety plan, and is free of suicidal ideation at discharge. Risk Factors Assessment : Yes Do You Have Access To A Gun?: No (son removed) Health Problems: Yes Mental Health Diagnoses: Yes Substance Use Disorders: No Previous Attempt: No Family History of Suicide: Yes Previous Psychiatric Hospitalization: No Protective Factors Assessment Employed: Yes Supportive Family: Yes (son, boyfriend) Tobacco Cessation at Discharge Tobacco Cessation Medication Prescribed at Discharge: Offered & Pt Refused Total Time Total Time Spent: Greater Than 30 Minutes (40 minutes) Total Time Includes: Examination of the patient, Discharge Planning and Medication Reconciliation Discharge Data Lab Results 08/31/23 08/31/23 09:31 09:39 WBC 14.74 H RBC 4.88 Hgb 14.9 Hct 45.0 MCV 92.2 MCH 30.5 MCHC 33.1 RDW Std Deviation 40.7 RDW Coeff of Corina 12.0 Plt Count 314 MPV 9.7 Immature Gran % (Auto) 0.8 Neut % (Auto) 79.3 Lymph % (Auto) 15.9 Harnett % (Auto) 3.7 Eos % (Auto) 0.0 Baso % (Auto) 0.3 Neut # (Auto) 11.69 H Lymph # (Auto) 2.35 Harnett # (Auto) 0.54 Eos # (Auto) 0.00 Baso # (Auto) 0.04 Immature Gran # (Auto) 0.12 Sodium 137 Potassium 3.3 L Chloride 102 Carbon Dioxide 20 L Anion Gap 15 H BUN 10 Creatinine 0.81 Est Cr Clr Drug Dosing 66.0 Est GFR ( Amer) 95.4 Est GFR (Non-Af Amer) 82.3 BUN/Creatinine Ratio 12.3 Glucose 99 Calcium 9.3 Total Bilirubin 0.5 AST 17 ALT 15 Alkaline Phosphatase 77 Troponin I High Sens 4.7 Total Protein 7.9 Albumin 5.0 Globulin 2.9 Albumin/Globulin Ratio 1.7 Lipase 64 TSH 0.227 L Free T4 1.22 HCG, Qual Negative Urine Color Yellow Urine Appearance Cloudy A Urine pH 6.0 Ur Specific Reserve 1.025 Urine Protein Trace H Urine Glucose (UA) Negative Urine Ketones 4+ H Urine Blood 3+ H Urine Nitrite Negative Urine Bilirubin Negative Urine Urobilinogen Negative Ur Leukocyte Esterase Negative Urine WBC (Auto) 1-5 Urine RBC (Auto) 10-30 H U Hyaline Cast (Auto) 1-5 U Epithel Cells (Auto) >30 H Urine Bacteria (Auto) 1+ H Salicylates < 3.0 L Urine Opiates Screen Neg Ur Methadone, Qual Neg Acetaminophen 11 Urine Barbiturates Neg Ur Phencyclidine (PCP) Neg U Amphetamin/Meth Scrn Neg MDMA (Ecstasy) Screen Neg U Benzodiazepines Scrn Neg Ur Cocaine Metabolite Neg U Marijuana (THC) Screen Neg Ethyl Alcohol mg/dL < 10.0 SARS-CoV-2, RNA, NAAT NEGATIVE Hospital Course (1) Depression with anxiety: Plan 09/01/23: The patient was admitted to the [facility] ([facility] inpatient mental health unit) on q15 min checks (behavioral with suicide precautions) for safety. The patient will participate in group, recreational, and milieu therapies and will be offered additional individual and family sessions as clinically appropriate. Risks/benefits/alternatives were reviewed re: her current medication. Geodon will be officially discontinued. Ativan low dose prn rather than Vistaril as less likely to prolong QTc. hx of previous trazodone trial so will offer Ambien prn sleep. Will continue Effexor XR taper in preparation for a trial of another antidepressant, ?Remeron with hope to review records. The patient's history of trial of multiple antipsychotic medications doesn't necessary align with her reported dx but no evidence of psychosis on exam. Given BP would also suggest taper and d/c guanfacine given reported lack of efficacy. Mental Health & Subst Abuse Tx Psychiatrist Name of Psychiatrist: [employer] Psychiatrist's Phone Number: [phone] Date Of Appointment With Psychiatric Provider: 09/12/23 Time of Appointment with Psychiatrist: please confirm date/time with your psychiatrist Psychiatric Appointment Comment: telemedicine Jive Developer Name of Jive Developer: [employer] Vinny Yan Phone Number for Jive Developer: [phone] Case Management Appointment Comment: Farrah will reach out to you next week to schedule intake appointment. Post Discharge Appointments Smoking Cessation Counseling Tobacco Cessation Medication Prescribed at Discharge: Offered & Pt Refused Discharge Plan Discharge Items Patient Disposition: Home - Self-Care Reason For Visit: MAJOR DEPRESSIVE DISORDER Discharge Diagnosis: same Activity: Resume your previous activity Non-emergency contact: Primary Care Provider, Psychiatrist and Nuclear Medical Tech Call non-emergency contact if: you have any medication questions and your symptoms worsen Follow-up/Referrals: Anurag Nagy MD [Primary Care Provider] - Diet: Regular Addtl Attending Provider Instructions: SPECIAL CARE INSTRUCTIONS: 1. Follow through with your scheduled aftercare appointments. If unable to keep an appointment, please call to reschedule. 2. Take your medication only as prescribed. Medication should not be changed or stopped without the approval of your doctor. In the event of worsening symptoms or concerns about side effects, contact your doctor immediately. 3. Utilize new healthy coping skills, anger management skills, and stress management skills learned during your hospitalization. Journal feelings and process them with a support person. Identify stressors or situations that may result in relapse, deterioration or inappropriate behaviors and develop a plan to deal with those issues. 4. If your coping skills are ineffective and you are in crisis, contact your outpatient providers for direction. If unable to reach your providers, please call the [facility] CRISIS LINE AT , go to the [facility] walk-in center at [address], [address], [place], or go to the closest Emergency Room. 5. Avoid alcohol and un-prescribed drugs. 6. You have been provided with the Mental Health Advance Directives Pamphlet for your review. 7. Your condition is stable for discharge to outpatient level of care, but recovery is an ongoing process. Ifthoughts to harm yourself or others return, follow the safety plan developed during your stay. Planning for a safe return home includes securing weapons. Our treatment team recommends weaponsbe removed from the home until your outpatient provider reassesses your progress. In rare cases where the items themselvescannot be removed, guns and ammunitionshould be secured separatelyand keys stored by a reliable personoutside of the home. If you were admitted on an involuntary commitment, the police or other legal authorities may be involved in this process. AFTERCARE APPOINTMENTS: * Please call your insurance company prior to your scheduled appointment to confirm your aftercare providers are covered. Take your insurance information to your appointments. WHO TO CALL AND WHEN: Medical Emergencies: For questions or emergencies related to your hospital stay, please contact the Inpatient Behavioral Health Unit at [phone]. A building maintenance supervisor is on-call 18/01 for the Behavioral Health Unit for emergencies At any time you feel your situation is an emergency, you may also call 911 immediately. Pending Studies at Discharge: No Stand-Alone Forms: My [place] PUD, Smoking Cessation Medications and DC Order Prescriptions: New lorazepam [Ativan] 1 mg tablet 1 mg PO DAILY PRN (Reason: anxiety) Qty: 14 0RF Rx Instructions: panic zolpidem [Ambien] 10 mg tablet 10 mg PO HS PRN (Reason: insomnia) Qty: 14 0RF Rx Instructions: do not take within 6 hrs of Ativan Continued solifenacin 10 mg tablet 10 mg PO DAILY Qty: 90 3RF methimazole 5 mg Tablet 5 mg PO Q OTHER DAY Rx Instructions: take every other day Changed guanfacine 2 mg Tablet 1 mg PO HS Qty: 1 0RF Rx Instructions: use own supply (cut tabs in half) Held methylphenidate HCl 18 mg tablet extended release 24hr 18 mg PO DIRECTED PRN (Reason: Take as needed for ADHD) Hold Instructions: Resume on 09/16/23. until speak with outpatient prescriber Discontinued venlafaxine 75 mg Tablet Extended Release 24hr 75 mg PO DAILY ziprasidone HCl 20 mg capsule 20 mg PO HS Discharge Orders: Discharge Order (Routine); Ordered 09/02/23 Ordered By: Pina Stern Admission Data Admit Date/Time: 08/31/23 13:58 Attending Provider: Pina Stern Admit Provider: Pina Stern Primary Care Provider: Anurag Nagy Other Interventions: PSY Interdisciplinary Discharge Planning Last Done: 09/02/23 10:44 Coding Level of Care Code 92689 D/C day mgmt > 30 min Diagnoses Depression with anxiety F41.8
== END 2023-09-02 15:31 | disposition home or self-care (01) | DRG 881 ==
LOC: ED 09:24 → 3S 13:58